=== PATIENT | male | born 1980 | race Caucasian/White ===

== ENCOUNTER 2019-08-07 16:28 | Emergency (ER) | payer OTHER, SELFPAY ==
[2019-08-07 16:39] VITALS: BP 130/66; PULSE 67; RESP 14; TEMP 36.3; O2SAT 97; BMI 32.5
--- NOTE | 2019-08-07 17:18 | CTR_ITS ---
PROCEDURE INFORMATION: Exam: CT Abdomen And Pelvis Without Contrast Exam date and time: 08/07/2019 5:22 PM Age: 38 years old Clinical indication: Abdominal pain; Acute; Additional info: Rigth flank/testicle pain sudden onset TECHNIQUE: Imaging protocol: Computed tomography of the abdomen and pelvis without contrast. Radiation optimization: All CT scans at this facility use at least one of these dose optimization techniques: automated exposure control; mA and/or kV adjustment per patient size (includes targeted exams where dose is matched to clinical indication); or iterative reconstruction. COMPARISON: No relevant prior studies available. RADIATION DOSE METRICS: Total DLP: 2229.38 mGy-cm FINDINGS: Liver: Normal. No mass. Gallbladder and bile ducts: Normal. No calcified stones. No ductal dilation. Pancreas: Normal. No ductal dilation. Spleen: Normal. No splenomegaly. Adrenals: Normal. No mass. Kidneys and ureters: 3 mm obstructing calculus in the right distal ureter (series 602, image 30). A 5 mm nonobstructing calculus at the lower pole of left kidney. 1 mm non-obstructing calculus at the lower pole of the right kidney. Mild right hydronephrosis and hydroureter. Stomach and bowel: Unremarkable. No obstruction. No mucosal thickening. Appendix: No evidence of appendicitis. Intraperitoneal space: Unremarkable. No free air. No significant fluid collection. Vasculature: Unremarkable. No abdominal aortic aneurysm. Lymph nodes: Unremarkable. No enlarged lymph nodes. Bladder: Unremarkable as visualized. Reproductive: Unremarkable as visualized. Bones/joints: Unremarkable. No acute fracture. Soft tissues: Unremarkable. CT/CT kidney stone 37110 IMPRESSION: Obstructing calculus measuring 3 mm in the distal right ureter with mild right hydronephrosis and hydroureter. Radiation Dose CTDIVOL = (mGy): DLP = 2229.38 (mGy-cm)
--- NOTE | 2019-08-07 17:20 | ED_ITS ---
HPI - Male Genitourinary General: Chief complaint: Urogenital-Male Stated complaint: back pain Time Seen by Provider: 08/07/19 17:09 History of Present Illness: HPI Narrative: Patient arrives here in pain with pain that started 2 hours ago in his right flank that radiates down to his right testicle has had nausea and vomiting since then denies history of kidney stones has a history of back pain does not take medications MD Complaint: testicle pain and other (Right flank pain) Onset (ago): hour(s) (2) Duration: constant and progressively worsening Location: right testicle and right flank Radiation: right testicle and right flank Severity: severe Severity scale (1-10): 7 Quality: aching and dull Relieving factors: none Exacerbating factors: none Associated symptoms: Reports nausea and vomiting Review of Systems Const: Denies: fever(s), chills or body aches Eyes: Denies: change in vision or blurry vision ENMT: Denies: throat pain or nasal congestion Card: Denies: chest pain or dyspnea on exertion Resp: Denies: dyspnea, productive cough or non-productive cough GI: Reports: nausea and vomiting : Reports: flank pain and testicular pain; Denies: difficulty urinating Musc: Denies: extremity pain Skin/Breast: Denies: rash Neuro: Denies: headache(s) Psych: Denies: anxiety or depression Carlos/Lymph: Denies: easy bruising PFSH ED PFSH: Social History Smoking and tobacco status: never smoked Physical Exam Narrative: EXAM NARRATIVE: Appears in discomfort Const: COMMON NORMALS: no acute distress, average body habitus and patient oriented x3 HENMT: COMMON NORMALS: normocephalic HEAD & SCALP: normal to inspection and normocephalic FACE & SINUS: normal facial exam Eye: COMMON NORMALS: conjunctivae normal GENERAL EYE: appearance normal, both eyes and all related structures CONJUNCTIVA: Yes conjunctivae normal Neck/C-Spine: COMMON NORMALS: no JVD Chest: COMMONS NORMALS: normal inspection of the chest Resp: COMMON NORMALS: normal respiratory effort and clear to auscultation bilaterally AUSCULTATION: clear to auscultation bilaterally Cardio: COMMON NORMALS: no JVD, regular rate and regular rhythm RATE: regular rate RHYTHM: regular rhythm GI: COMMON NORMALS: Normal to inspection, nondistended, normoactive bowel sounds present : COMMON NORMALS: Yes scrotum normal BLADDER/KIDNEY EXAM: Yes CVA tenderness on the right Back/Pelvis: GENERAL BACK: Yes CVA tenderness Extremity: COMMON NORMALS: normal to inspection and full ROM Neuro: COMMON NORMALS: patient oriented x3 Course Vital Signs: Vital signs: Vital Signs Temperature 97.3 F L 08/07/19 16:39 Pulse Rate 67 08/07/19 16:39 Respiratory Rate 14 08/07/19 16:39 Blood Pressure 130/66 08/07/19 16:39 Pulse Oximetry 97 08/07/19 16:39 Discharge Plan Discharge Condition: Good Coding Level of Care Code ED Marketing Information Coordinator for Neva Hernandez
[2019-08-07] MEDS: ketorolac 30 mg/mL INJ IVP (17:31)
[2019-08-07] MEDS: ondansetron 2 mg/ML SDV 2 mL 4 MG IVP (17:32)
[2019-08-07] MEDS: sodium chloride 0.9% 1,000 ML 999 ML IV (17:32)
[2019-08-07 17:58] LABS: Basophils % 0.3 %; Eosinophils # 0.2 10^3/uL (0.0-0.8); Eosinophils % 1.9 %; Hemoglobin 15.4 g/dL (11.7-16.6); Lymphocytes # 3.7 10^3/uL (0.8-4.8); Lymphocytes % 32.5 %; Mean Corpuscular HGB Conc 32.8 g/dL (30.0-36.0); Mean Corpuscular Hemoglobin 29.8 pg (28.0-34.0); Mean Corpuscular Volume 91.1 fL (80-94); Mean Platelet Volume 9.5 fL (7.4-10.4); Monocytes # 0.8 10^3/uL (0.2-0.9); Monocytes % 7.2 %; Neutrophils # 6.5 10^3/uL (1.8-7.7); Neutrophils % 57.8 %; Nucleated Red Blood Cells % 0 %; Platelet Count 267 10^3/cmm (130-400); Red Blood Count 5.16 10^6/uL (4.1-5.3); White Blood Count 11.2 10^3/uL (4.0-10.0)
[2019-08-07 18:06] LABS: Alanine Aminotransferase 21 U/L (0-41); Albumin Level 4.9 g/dL (3.5-5.2); Alkaline Phosphatase 70 IU/L (40-130); Anion Gap 16.9 (5-19); Aspartate Amino Transferase 18 U/L (0-40); Blood Urea Nitrogen 14 mg/dL (6-20); Calcium 9.9 mg/dL (8.5-10.5); Carbon Dioxide 24 mmol/L (22-29); Chloride 104 mmol/L (98-107); Globulin 2.3 g/dL (1.3-4.6); Glomerular Filtration Rate 68.1 mL/min (90-130); Glucose 147 mg/dL (65-115); Lipase 30 U/L (13-60); Osmolality Calculated 291 mOsm/kg (285-295); Potassium 3.9 mmol/L (3.5-5.1); Sodium 141 mmol/L (136-145); Total Bilirubin 0.2 mg/dL (0.15-1.2); Total Protein 7.2 g/dL (6.6-8.7)
[2019-08-07 18:43] VITALS: BP 126/61; PULSE 67; RESP 18; O2SAT 97
== END 2019-08-07 18:44 | disposition home or self-care (01) ==
PROVIDERS: Emergency Provider Nurse Practitioner Family; PCP Nurse Practitioner
DX: M54.9 Dorsalgia, unspecified (principal)
CPT/HCPCS: 12345; 36415; 74176; 80053; 83690; 85025; 96361; 96374; 96375; 99282; 99283; J1885; J2405; J7030

== ENCOUNTER 2021-06-30 06:00 | Outpatient (RCR) | payer OTHER, SELFPAY | END 2021-07-04 23:59 | disposition home or self-care (01) | LOC: SPT 06:00 | PROVIDERS: PCP Nurse Practitioner; Referring Provider Nurse Practitioner; Visit Provider Nurse Practitioner | DX: M25.512 Pain in left shoulder (principal) | CPT/HCPCS: 97110; 97161 ==

== ENCOUNTER 2021-07-05 | Outpatient (RCR) | payer OTHER, SELFPAY | END 2021-08-04 23:59 | disposition home or self-care (01) | LOC: SPT | PROVIDERS: PCP Nurse Practitioner; Referring Provider Nurse Practitioner; Visit Provider Nurse Practitioner | DX: M25.519 Pain in unspecified shoulder (principal) | CPT/HCPCS: 97110 ==

== ENCOUNTER → 2021-12-28 13:21 | Outpatient (BNVA) | payer OTHER, SELFPAY | PROVIDERS: PCP Nurse Practitioner; Visit Provider Specialist | DX: M25.561 Pain in right knee (principal); G89.29 Other chronic pain | CPT/HCPCS: 73560; 73565; 99204 ==

== ENCOUNTER 2022-11-11 20:00 | Outpatient (CLI) | payer OTHER, SELFPAY | END 2022-11-11 20:01 | disposition home or self-care (01) | LOC: SLEEP 11-12 04:13 | PROVIDERS: PCP Nurse Practitioner; Visit Provider Nurse Practitioner | DX: G47.33 Obstructive sleep apnea (adult) (pediatric) (principal) | CPT/HCPCS: 95811 ==

== ENCOUNTER 2024-08-29 09:10 | Emergency (ER) | payer OTHER, BC, SELFPAY ==
--- OUTSIDE RECORDS SUMMARY | 2024-06-06 05:20 | XMS_ITS ---
Author Organization [facility] Address [address] [place] [address] Care Team Providers Care Office Assistant Receptionist Name Role Phone Ji Cordon Unavailable [phone] Milena Lehman Unavailable [phone] REASON FOR VISIT 6-8 w f/u with CT abd/pelvis with and without contrast Problems Problem Type SNOMED Code ICD Code Onset Dates Problem Status W/U Status Risk Notes Problem Hematuria (34669618) Hematuria, unspecified (R31.9) Active confirmed Encounters Encounter Location Date Provider Diagnosis [facility] [address] [place] [address], [place] [phone] 06/06/2024 Milena Lehman Calculus of kidney N20.0 ; Hematuria, unspecified R31.9 ; Testicular hypofunction E29.1 and 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 IF YOU HAVE CHILLS, FEVER, FLANK PAIN, BLOOD IN URINE, NAUSEA, VOMITING, PLEASE SEEK EMERGENT CARE. 06/06/2024 Hematuria, unspecified (ICD-10 - R31.9) PLAN - PATIENT WILL CONTACT OFFICE OF THEY HAVE ANY GROSS OR CAMPBELL BLEEDING. 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 CORDON 06/06/2024 Other FOLLOW UP IN 6 MONTHS, HAS APPT WITH DR. CORDON Plan Of Treatment Treatment Notes Assessment Notes Calculus of kidney PLAN - PATIENT TO HAVE CT PER DR CORDON, CBC, CMP, UA AND FOLLOW UP WITH PROVIDER IN 6 MONTHS. IF YOU HAVE CHILLS, FEVER, FLANK PAIN, BLOOD IN URINE, NAUSEA, VOMITING, PLEASE SEEK EMERGENT CARE. Hematuria, unspecified PLAN - PATIENT WI LL CONTACT OFFICE OF THEY HAVE ANY GROSS OR CAMPBELL BLEEDING. Testicular hypofunction HAS APPT WITH DR CORDON SCHEDULED, HAS LABS ORDERED Neoplasm of renal pelvis CT UROGRAM, PAT IENT WILL NEED THIS PER DR. CORDON Other FOLLOW UP IN 6 MONTH S, HAS APPT WITH DR. CORDON Next Appt Details Provider Name:Ji Trevino Carl campos, 09/12/2024 11:10:00 AM, [address] [facility], [place] [address], [place], [address], Progress Notes * DEBBIE KOWALSKI RDOB: 2 (43 yo M)Acc No.[id number]:06/06/2024 Progress Notes Patient: Ton DEBBIE RO R Provider: J LUIS Ware :1980 A ge:43 Y S ex:Male Date:06/06/2024 Address:[address] [place] [address] Subjective: * Chief Complaints: * 1 . 6-8 w f/u with CT abd/pelvis with and without contrast. 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 Young's note he is to have his follow-up with him 6 months from his last appointment with CBC estradiol CMP and testosterone Will need CT 6 months from now. * Medical History: Objective: * Vitals: Assessment: * Assessment: 1. C alculus of kidney - N20.0 (Primary) 2 . H ematuria, unspecified - R31.9 3 . T esticular hypofunction - E29.1 4 . N eoplasm of renal pelvis - D49.519 Plan: * Treatment: 2. H ematuria, unspecified Notes: PLAN - PATIENT WILL CONTACT OFFICE OF THEY HAVE ANY GROSS OR CAMPBLEL BLEEDING. 3. T esticular hypofunction Notes: HAS APPT WITH DR CORDON SCHEDULED, HAS LABS ORDERED 4. N eoplasm of renal pelvis Notes: CT UROGRAM, PATIENT WILL NEED THIS PER DR. CORDON 5. O thers Notes: FOLLOW UP IN 6 MONTHS, HAS APPT WITH DR. 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 Young's note he is to have his follow-up with him 6 months from his last appointment with CBC estradiol CMP and testosterone Will need CT 6 months from now.
[2024-08-29 09:10] VITALS: BP 131/82; PULSE 94; RESP 16; TEMP 36.7; O2SAT 96; BMI 33.7
--- NOTE | 2024-08-29 09:15 | ECG_ITS ---
[facility] Date: 2024-08-29 Pat Name: Tod Rodriguez Department: Room: Gender: Male [employer]: : 1980 Requested By: Jacqueline Baez Order Number: [id number] Reading MD: Measurements Intervals [place] Rate: 84 P: 63 IL: 142 QRS: 83 QRSD: 96 T: 37 QT: 339 QTc: 403 Interpretive Statements SINUS RHYTHM No previous ECG available for comparison [email or web address]
--- OUTSIDE RECORDS SUMMARY | 2024-08-29 09:34 | XMS_ITS | Data Portability ---
Author Organization [facility] Address [address] [address] Assessment Encounter Date Assessment Date Assessment LastModified by Organization Details LastModified Time 12/21/2023 12/21/2023 Reviewed and discussed [facility] labs pt brought with him today. Document scribed by Santiago Murcia, Audio Narrator. I was present during interview and exam. I have reviewed and agree with above documentation . Dr. Steven Salomon. [email or web address] Not available 12/21/2023 17:13:59 Plan of Treatment Reminders Order Date Submit Date Provider Last Modified By Organization Details Last Modified Time Details Appointments None recorded. Lab None recorded. Referral None recorded. Procedures None recorded. Surgeries None recorded. Imaging None recorded. Medication Orders testosteron e cypionate 100 mg/mL intramuscul ar oil 2023 024 [facility] [place], [address] [place], [address], 4 15:06:22 Patient TargetsNo targets recorded. Patient InstructionsNo instructions recorded. Reason for Referral None Reported. Problems Name Problem SNOMED Code Status Onset Date Resolution Date Notes Provider Name and Address Organization Details Recorded Time [facility] 067218646 Completed 201812/21/2023 Benign Essential Tremor; 9 9:31AM by Eugene Gonzalez LPN, Office Visit; Promoted; acuity set as *; Santiago marley, [facility] 17:10:30 Tonsille ctomy Completed 200712/21/2023 Tonsillec gema, Uvulectom y; Date: 2007; 9 9:31AM by Eugene Gonzalez LPN, Office Visit; Promoted; acuity set as *; Santiago Murcia ayaka [facility] 4 17:10:20 Alpha-ga l syndrome Active 2023 [facility] 16:33:54 Obstruct dhiraj sleep apnea syndrome 24247115 Active 2023 [facility] 17:09:43 Testoste patel level below referenc e range 584981851 Active [address] [facility] 17:19:36 Problem Notes None recorded. Procedures Surgical History Date Name Laterality Status Provider Name and Address Organization Details Recorded Time manipulation of displaced nasal septum completed [facility] 12/21/2023 16:36:14 Remove tonsils and adenoids completed [facility] 12/21/2023 16:36:46 ultrasonic fragmentation of urinary stone through percutaneous nephrostomy completed [facility] 12/21/2023 16:37:00 Imaging Results None recorded. Procedure Notes None recorded. Medical Equipment None Reported. Allergies No known drug allergies Medications Name Sig Start Date Stop Date Status Note LastModified by Organization Details LastModified Time desonide 0.05 % topical cream 12/20 completed Not Available Not Available Not Available citalopram 40 mg tablet 12/20 completed Not Available Not Available Not Available azithromyci n 250 mg tablet TAKE 2 TABLETS BY MOUTH TODAY, THEN TAKE 1 TABLET DAILY ON DAYS 2-5 12/20 completed Not Available Not Available Not Available testosteron e cypionate 100 mg/mL intramuscul ar oil Inject by intramusc ular route for 90 days. active Not Available Not Available No t Available clobetasol 0.05 % topical cream 12/20 completed Not Available Not Available Not Available omeprazole 40 mg capsule,del ayed release 12/20 completed Not Available Not Available Not Available propranolol 10 mg tablet 12/20 completed Not Available Not Available Not Available citalopram 20 mg tablet TAKE 1 TABLET BY MOUTH EVERY DAY 12/20 completed Not Available Not Available Not Available oseltamivir 75 mg capsule take 1 capsule BY MOUTH TWICE DAILY 12/20 completed Not Available Not Available Not Available hydrochloro thiazide 25 mg tablet 12/20 completed Not Available Not Available Not Available epinephrine 0.3 mg/0.3 mL injection, auto-inject or active Not Available Not Available Not Available testosteron e cypionate 200 mg/mL intramuscul ar oil inject 0.5ml (100mg) INTRAMUSC ULARLY every TWO weeks active Not Available Not Available No t Available fluocinonid e 0.05 % topical solution 12/20 completed Not Available Not Available Not Available methylpredn isolone 4 mg tablets in a dose pack Take as directed on package for 6 days 12/20 completed Not Available Not Available Not Available Vitals Date Recorded Body weight Body mass index (BMI) Body height Oxygen saturation Oxygen saturation in Arterial blood by Pulse oximetry Heart rate Respiratory rate Provider Name and Address Organization Details Last Updated DateTime 4 190429. 19 g 34.9 kg/m2 180.34 cm 97 % 97 % 108 /min 20 /min Reny Figueroa [facility] 16:32:22 Social History Question Answer Notes LastModified by Organizat ion Details LastModified Time Tobacco Smoking Status Former Smoker Reny marley [facility] 12/21/2023 16:35:53 What Is Your Level Of Caffeine Consumption? Moderate Information not available 12/21/2023 When Did You Quit Smoking? 1-5yearssincel astcigarette Information not available 12/21/2023 What Was The Date Of Your Most Recent Tobacco Screening? 12/21/2023 Information not available 12/21/2023 Sex: Unknown Functional Status Question Answer Note LastModified by Organizat ion Details LastModified Time Do you use any illicit or recreational drugs? No [email or web address] Information not available 12/21/2023 Do you or have you ever used any other forms of tobacco or nicotine? No [email or web address] Information not available 12/21/2023 What is your level of alcohol consumption? Occasional [email or web address] Information not available 12/21/2023 Do you or have you ever used any nicotine-free cigarettes, vape, or chewing tobacco? No [email or web address] Information not available 12/21/2023 Mental Status None recorded. Family History Relationship Description Onset Age of this Age Resolved Age Notes LastModified by Organization Details LastModified Time Father Essential hypertension Not available 16:34:34 Paternal Grandmother Neoplasm of brain [email or web address] Not available 2023 16:34:52 Notes:Father Prediabetic. Medical History No medical history recorded. Immunizations Vaccine Type Date Status Note Provider Nam e and Address Organization Details Recorded Time Tdap 3 completed Not Available [facility] 10/02/20[facility] 02:50:43 Influenza, split virus, trivalent, preservative 5 completed Not Available [facility] 10/02/2022 02:50:44 COVID-19, mRNA, LNP-S, PF, 100 mcg/0.5mL dose or 50 mcg/0.25mL dose [address] [facility] 12/21/2023 16:32:34 Influenza, split virus, trivalent, preservative [address] [facility] 12/21/2023 16:32:34 Past Encounters Encounter ID Performer Location Encounter Start Date Encounter Closed Date Diagnosis/Indication Diagnosis SNOMED-CT Code Diagnosis ICD10 Code Diagnosis Note [id number] Steven Salomon DO [facility] ([facility]) [address] [place] [phone] 12/21/2023 16:25:17 12/22/2023 08:53:01 Obstructive sleep apnea syndrome 02272348 G47.33 Dx in 2021, using CPAP, tolerating well. Testostero ne level below reference range 263636629 R89.1 Discussed Testostero ne, options of injection or gel. Pt prefers to try injection. Recheck Testostero ne in 3 months, prior to getting injection. Counseled on diagnosis, treatment options including medication s and possible side effects. F/u 3 months, lab prior. Health Concerns Section Related Observation LastModified by Organization Detai ls LastModified Time None Recorded Concern Status LastModified by Organization Details LastModified Time None Recorded Advance Directives Directive None Recorded Payers Insurance Date Sequence Insurance Name Policy Number Policy Aviles Covered Member ID Aviles Member ID Guarantor Name 02/18/2024 1 [place] [id number] Tod Rodriguez [id number] Tod Rodriguez Notes Date Note Type Note Provider Name and Address Organization Details Recorded Time 12/21/2023 text/html Annual WellnessReported bypatient.Diet and Nutrition:healthy diet Fracture Risk:no history of fractures; no recent explained fracture; no sudden unexplained fractures; no previous musculoskeletal injuries Physical Activity:exercises on a regular basis; recent increase in physical activity; good physical condition Additional Lifestyle Factors:no tobacco use; no alcohol intake Depression Risk:never feels sad, empty, or tearful; no thoughts of suicide;loss of interest in activities;significant changes in weight;sleep disturbances or insomnia;agitated;loss of energy;feelings of worthlessness or guilt;history of mood disorders;history of depression Hearing:no loss of hearing Vision:no vision problems; wears corrective lenses Pt presents to establish care, previous pcp was [facility]. Generally healthy. No significant Pmhx other than RAFAEL and Alpha Gal Syndrome.No recent ER visits or hospitalizations. Mood stable, denies any severe depression or anxiety. Fhx: Father Prediabetic. He c/o fatigue. Recent testosterone levels were 294 on 12/01/23, 280 on 12/08/23, and 331 on 04/29/23.[facility] will not address his Testosterone. He feels like he is losing muscle mass, not losing weight. He has no motivation. He is easily worn out.If he sits down he falls asleep. Falls asleep easily in the car. He has started yoga for exercise, because his knees couldn't tolerate heavy exercise. Using treadmill 30 mins per day. He has cut out all soda, limiting sugars to 1-2 times weekly. Avoids energy drinks.He tried a carnivore diet, didn't tolerate.He is limiting his food to mostly meat and veggies, some bread. He eats mostly chicken and fish, limits his dupont to 2 pieces per day. 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 At home he sleeps around 7 hours per night.He no longer snores since starting CPAP at night. He brings lab results from [facility] drawn 12/13/23:TPO wnl.TSH 1.01.T4 borderline low.Vit D 29.B12 391.Total Chol 150, LDL 93.8, Tri 131, HDL 30.Glucose 98.A1c 5.5.AST 16, ALT 19.LH 2. Steven Salomon, DO [address] [place] [address], [phone], [facility], [place] 12/21/2023 17:30:05
--- OUTSIDE RECORDS SUMMARY | 2024-08-29 09:34 | XMS_ITS | Patient Health Record ---
Author Organization [facility] Address [address] [place] [address] Care Team Providers Care Bark Grinder Name Role Phone Ji Leong Unavailable [phone] Milena Lehman Unavailable Allergies No Known Allergies Results Component Value Reference Range Notes UA Without Micro-[place], [place] - [id number] Reviewed date:03/29/2024 10:20:01 AM Interpretation: Performing Lab: Notes/Report: Glucose - Bili 1+ Ketones +- Sp Hortense 1.020 Blood 3+ pH 6.0 Protein 3+ Urobili +- Nitrites + Leukocytes 2+ Culture Urine [id number] Reviewed date:04/02/2024 09:23:27 AM Interpretation: Performing Lab: Notes/Report: Culture Urine DEBBIE Maloney Culture Urine t: Culture Urine Culture Urine Access [id number] Culture Urine n: Culture Urine Microbiology Culture Urine PROCEDURE: Culture Urine [O1] Culture Urine SOURCE: Urine BODY SITE: Culture Urine COLLECTED DATE/TIME: 03/29/2024 10:15 FONDANT PUFF MAKER RECEIVED DATE/TIME: 03/29/2024 15:31 [employer]ONDANT [employer] Culture Urine START DATE/TIME: 03/29/2024 15:31 FONDANT [employer] FREE TEXT SOURCE: Culture Urine FINAL REPORT Culture Urine Final Report [] Culture Urine Verified Date/Time: 03/31/2024 06:20 [employer]ONDANT [employer] Culture Urine No growth at 48 hours Culture Urine Order Comments Culture Urine O1: Culture Urine (Culture Urine [id number]) Culture Urine Diagnosis Description: Hematuria, unspecified [place] - [id number] Reviewed date:04/18/2024 11:05:03 AM Interpretation: Performing Lab: Notes/Report: Glucose - Bili - Ketones - Sp Hortense 1.020 Blood 3+ pH 6.5 Protein 3+ Urobili - Nitrites - Leukocytes 1+ UA Without [place], [place] - [id number] Reviewed date:07/16/2024 02:56:52 PM Interpretation: Performing Lab: Notes/Report: Glucose 0 Bili 0 Ketones 0 Sp Hortense 1.015 Blood 0 pH 7.0 Protein 0 Urobili 0 Nitrites [address] Abdomen, Pelvis w/ + w/o Contrast-[id number] Reviewed date:06/02/2024 08:21:57 PM Interpretation: Performing Lab: Notes/Report: [id number]=[email or web address] Abdomen AP-[id number] Reviewed date:01/31/2024 09:17:11 AM Interpretation: Performing Lab: Notes/Report: See Below For Report Abdomen AP Diagnosis Description: Calculus of kidney Read See Below For Report Culture Urine [id number] Reviewed date:03/24/2024 02:57:44 PM Interpretation: Performing Lab: Notes/Report: Culture Urine Enedina CHÁVEZDEBBIE MCGEE Culture Urine t: Culture Urine Culture Urine Accessio [id number] Culture Urine n: Culture Urine Microbiology Culture Urine PROCEDURE: Culture Urine [] Culture Urine SOURCE: U CC BODY SITE: Culture Urine COLLECTED DATE/TIME: 03/22/2024 08:10 FONDANT [employer] MAKER RECEIVED DATE/TIME: 03/22/2024 11:37 FONDANT [employer]KER Culture Urine START DATE/TIME: 03/22/2024 11:37 FONDANT [employer] FREE TEXT SOURCE: Culture Urine FINAL REPORT Culture Urine Final Report [] Culture Urine Verified Date/Time: 03/24/2024 08:22 FONDANT PU[employer] MAKER Culture Urine <10,000 cfu/ml Mixed Superficial Jil CBC w\ Auto Diff [id number] Reviewed date:03/24/2024 02:55:00 PM Interpretation: Performing Lab: Notes/Report: WBC 8.2 4.5-11.0 X10'3 RBC 5.82 4.50-5.90 X10'6 Hgb 16.6 13.5-17.5 G/DL Hct 51.6 41.0-53.0 % MCV 88.7 80.0-100.0 FL MCH 28.5 27.0-31.0 PG MCHC 32.2 31.0-37.0 G/DL Platelet 308 150-400 X10'3 RDW-SD 41.5 35.0-49.0 FL RDW-CV 12.7 12.2-15.6 % MPV 9.3 9.2-12.0 FL Neutro Auto% 49.1 40.0-70.0 % Lymph Auto% 38.6 22.0-44.0 % Brooke Auto% 9.4 3.0-7.0 % Eos Auto% 2.3 2.0-4.0 % Baso Auto% 0.2 0.0-1.0 % Imm Gran% .4 .0-.4 % Neutro Abs 4.04 .80-7.70 Absolute Neutrophil Count 4040 Lymph Abs 3.17 .10-4.10 Brooke Abs .77 .20-1.00 Eos Abs .19 .00-.40 Baso Abs .02 .00-.20 Imm Gran Abs .03 .00-.10 NRBC# .00 .00-.20 NRBC% .00 .00-.20 /100 intact WBC's Comprehensive Metabolic Pane l (CMP) [id number] Reviewed date:03/24/2024 02:55:08 PM Interpretation: Performing Lab: Notes/Report: Glucose Serum 95 71-110 MG/DL Testing perfor med at [facility], [address] [place] [address] [place] [address]. CLIA ID#: [id number] BUN 16 7-21 MG/DL Creat 1.03 .57-1.17 MG/DL X-iuiydm-f-benzoquinon e imine (NAPQI) is a metabolite of acetaminophen, NAPQI concentrations of apparoximately 10 mg/L correlation to toxic levels of acetaminophen demonstrates a greater than or equil to 10% change in results. NAPQI concentrations greater than this may lead to falsely depressed results for patient samples. Use of this assay is not recommended for patients undergoing treatment with phenindione, due to the potential for falsely depressed results. GFR 92.3 Calculation per formed from GFR calculator provided by the National [employer]. Glomerular Filtration rate(GRF) is the best overall index of kidney function. Normal GFR varies according to age,sex, body size, and declines with age. The National Kidney Foundation recommends using the CKD-EPI Creatinine Equation(2020) to estimate GFR. BUN/Creat Ratio 15.5 12.0-20.0 % Total Protein 7.1 5.8-8.0 G/DL Albumin 4.7 3.2-4.8 G/DL Globulin 2.4 2.3-3.5 G/DL Alb/Glob 2.0 0.8-2.2 Calcium 9.6 8.7-10.4 MG/DL Sodium 139 136-145 MMOL/L Potassium 4.4 3.5-5.1 MMOL/L Chloride 105 98-107 MMOL/L CO2 27.0 20.0-31.0 MMOL/L Anion Gap 11 5-15 Alk Phos 60 46-116 Bili Total .6 .3-1.2 MG/DL Use of this ass ay is not recommended for patients undergoing treatment with eltrombopag due to the potential for falsely elevated results. AST/SGOT 18 15-37 UNIT/L ALT/SGPT 21 12-78 UNIT/L Osmo Serum,Calculated 289 280-300 MOSM/KG Stone Analysis ( Calculi) 82 365 Reviewed date:04/13/2024 08:19:03 PM Interpretation: Performing Lab: Notes/Report: Calculi Mass 167 Calculi Description See Note Specimen consists of numerous brown and joe calculi fragments. The total weight is 167 mg. Calculi Composition See Note Calculi composed primarily of: 90% calcium oxalate monohydrate, and 10% calcium phosphate (hydroxy- and carbonate- apatite). INTERPRETIVE INFORMATION: Calculi (Stone) analysis Calculi are the products of physiological processes that yield crystalline compounds in a matrix of biological compounds and blood. Matrix components are not reported. The clinically significant crystalline components identified in calculi specimens are reported. Gross description may not be consistent with composition determined by FTIR analysis. Performed By: [facility] [address] [place] [id number] Scientific Associate: Nirmal Rowe MD, PhD CLIA Number: [id number] Retrograde Urography Reviewed date:04/05/2024 06:03:50 PM Interpretation: Performing Lab: Notes/Report: [id number]=iSite Retrograde Urography Reviewed date:04/05/2024 06:03:50 PM Interpretation: Performing Lab: Notes/Report: See Below For Report Retrograde Urography Read See Below For Report CT Abdomen, Pelvis w/ + w/o Contrast-[id number] Reviewed date:06/02/2024 08:49:27 PM Interpretation: Performing Lab: Notes/Report: See Below For Report CT Abdomen, Pelvis w/ + w/o Contrast Read See Below For Report Testosterone Total 99997 Reviewed date:03/24/2024 02:56:09 PM Interpretation: Performing Lab: Notes/Report: Testoster Tot 603.29 123.00-814.00 NG/DL Performed on the [employer]ens [employer] IM Analyzer Prolactin 61652 Reviewed date:03/24/2024 02:56:05 PM Interpretation: Performing Lab: Notes/Report: Prolactin 10.3 Expected Values Females Non: 2.8?29.2 ng/mL : 9.7? > 200 ng/mL Postmenopausal: 1.8?20.3 ng/mL Males 2.1?17.7 ng/mL Luteinizing Hormone 52898 Reviewed date:03/24/2024 02:55:28 PM Interpretation: Performing Lab: Notes/Report: Luteinizing Hrm <.07 Reference Ranges: Normal menstruating. Follicular Phase 1.9-12.5. Midcycle Peak 8.7-76.3. Luteal Phase 0.5-16.9. <0.1-1.5. Postmenopausal 15.9-54.0. Contraceptives 0.7-5.6. Males 20-70 Years 1.5-9.3. >70 Years 3.1-34.6. Performed on the Siemens [employer] Solution IM Estradiol Level 98896 Reviewed date:03/24/2024 02:55:21 PM Interpretation: Performing Lab: Notes/Report: Estradiol 71 Males < 0-52 Follicular Phase 11-165 Midcycle 146-526 Luteal Phase 33-133 Postmenopausal Female < 0-37 Test performed with Siemens Estradiol reagent assay. Siemens has confirmed the drug fulvestrant (Faslodex) may cause falsely elevated estradiol results when performed with this assay method. Fulvestrant (Faslodex) is an estrogen receptor antagonist which is used in the treatment of stage IV recurrent breast cancer in post-menopausal women with estrogen receptor positive breast cancer. Fulvestrant is used when other anti-estrogen drugs have failed. Fulvestrant has a similar chemical structure to estradiol and may cross-react with antibodies used in immunoassays. Abdomen AP-[id number] Reviewed date:01/30/2024 03:03:14 PM Interpretation: Performing Lab: Notes/Report: [email or web address]=[id number]=iSite Testosterone Total 07593 Reviewed date:02/05/2024 08:32:42 AM Interpretation: Performing Lab: Notes/Report: Diagnosis Description: Hypercalciuria Testoster Tot 747.15 123.00-814.00 NG/DL Performed on the [employer] IM Analyzer Basic Metabolic Panel (BMP) 82307 Reviewed date:02/05/2024 08:32:32 AM Interpretation: Performing Lab: Notes/Report: Diagnosis Description: Hypercalciuria Sodium 140 136-145 MMOL/L Potassium 3.7 3.5-5.1 MMOL/L Chloride 104 98-107 MMOL/L CO2 26.8 20.0-31.0 MMOL/L Glucose Serum 111 71-110 MG/DL Testing perfor med at [address] [place] [address]. CLIA ID#: [id number] BUN 11 7-21 MG/DL Creat .98 .57-1.17 MG/DL Z-emfqlu-u-benzoquinon e imine (NAPQI) is a metabolite of acetaminophen, NAPQI concentrations of apparoximately 10 mg/L correlation to toxic levels of acetaminophen demonstrates a greater than or equil to 10% change in results. NAPQI concentrations greater than this may lead to falsely depressed results for patient samples. Use of this assay is not recommended for patients undergoing treatment with phenindione, due to the potential for falsely depressed results. GFR 97.9 Calculation per formed from GFR calculator provided by the National Kidney Foundation. Glomerular Filtration rate(GRF) is the best overall index of kidney function. Normal GFR varies according to age,sex, body size, and declines with age. The National Kidney Foundation recommends using the CKD-EPI Creatinine Equation(2020) to estimate GFR. Anion Gap 13 5-15 BUN/Creat Ratio 11.2 12.0-20.0 % Calcium 9.8 8.7-10.4 MG/DL Osmo Serum,Calculated 290 280-300 MOSM/KG Reason For Referral Reason Kidney Stones Referring Provider First Name Wilson Asael ff Referring Provider Last Name [place] Referring Provider [facility] Referred Organization [facility] Referred Provider Ji Leong Referred Address [address],[place],[address],[place] Referred Provider Specialty Urology Referral Priority Routine Reason Kidney stone Referring Provider First Name Regan Asael ff Referring Provider Last Name [place] Referring Provider [facility] Referred Organization [facility] Referred Provider Ji Leong Referred Address [address],[place],[address],[place] Referred Provider Specialty Urology Referral Priority Routine 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) Referring Provider First Name Regan Asael ff Referring Provider Last Name [place] Referring Provider [facility] Referred Organization [facility] Referred Provider Ji Leong Referred Address [address],[place],[address],[place] Referred Provider Specialty Urology Referral Priority Routine Medications Medication SIG (Take, Route, Frequency, Duration) Notes Start Date End Date Status Testosterone Cypionate 200 MG/ML 0.5mL Intramuscular weekly for 30 days 01/31/2024 Active Problems Problem Type SNOMED Code ICD Code Onset Dates Problem Status W/U Status Risk Notes Problem Testicular hypofunction (769841878) Testicular hypofunction (E29.1) Active confirmed Problem Calculus of kidney (26250647) Calculus of kidney (N20.0) Active confirmed Problem Disorder of kidney and/or ureter (845901502) Disorder of kidney and ureter, unspecified (N28.9) Active confirmed Problem Hematuria (56584251) Hematuria, unspecified (R31.9) Active confirmed Problem Nephrolithiasis (76639238) Nephrolithiasis (N20.0) Active confirmed Vital Signs Heart Rate 99 /min 07/16/2024 Temperature 99.1 degrees Fahrenheit 07/16/2024 Blood pressure diastolic 91 mm Hg 07/16/2024 Height-cm 182.88 cm 07/16/2024 Weight-kg 113.67 kg 07/16/2024 Height 72.00 in 07/16/2024 Blood pressure systolic 142 mm Hg 07/16/2024 Weight 250.6 lbs 07/16/2024 BMI 33.98 kg/m2 07/16/2024 Procedures Procedure Date Ordered Date Performed Result Body Sit e PVR (Post Void Residual) 03/29/2024 03/29/2024 N/A Encounters Encounter Location Date Provider Diagnosis [facility] [address] [place] [address] 01/31/2024 Ji Leong Testicular hypofunct ion E29.1 and Nephrolithiasis N20.0 [facility] [address] [place] [address] [place] [address] 03/29/2024 Ji Leong Hematuria, unspecifi ed R31.9 ; Low testosterone R79.89 ; Nephrolithiasis N20.0 and Feeling of incomplete bladder emptying R39.14 [facility] [address] [place] [address] [place] [address] 04/18/2024 Ji Leong Calculus of kidney N20.0 ; 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 and Testicular hypofunction E29.1 [facility] [address] [place] [address] [place] [address] 07/16/2024 Milena Lehman Calculus of kidney N20.0 and Disorder of kidney and ureter, unspecified N28.9 [facility] [address] [place] [address] 12/08/2023 Ji Leong [facility] [address] [place] [address] 01/30/2024 Ji Leong Hypercalciuria R82.9 94 and Calculus of kidney N20.0 [facility] [address] [place] [address] 01/31/2024 Ji Leong [facility] [address] [place] [address] 01/31/2024 Ji Leong [facility] [address] [place] [address] 01/31/2024 Ji Leong Testicular hypofunct ion E29.1 [facility] [address] [place] [address] [address] [place] [address] 01/31/2024 Ji Leong Testicular hypofunct ion E29.1 [facility] [address] [place] [address] [address] [place] [address] 01/31/2024 Ji Mayssay [facility] [address] [place] [address] 03/05/2024 Ji [facility] [address] [place] [address] 03/25/2024 Ji Leong Nephrolithiasis N20. 0 [facility] [address] [place] [address] 03/29/2024 Ji Neris [facility] [address] [place] [address] [address] [place] [address] 03/29/2024 Ji Leong Hematuria, unspecifi ed R31.9 [facility] [address] [place] [address] [address] [place] [address] 03/29/2024 Ji [facility] [address] [place] [address] [address] [place] [address] 04/18/2024 Ji Leong Calculus of kidney N20.0 [facility] [address] [place] [address] [address] [place] [address] 04/18/2024 Ji Leong Calculus of kidney N20.0 [facility] [address] [place] [address] [address] [place] [address] 05/30/2024 Ji Mayssay [facility] [address] [place] [address] [address] [place] [address] 06/05/2024 Ji Mayssay [facility] [address] [place] [address] [address] [place] [address] 07/17/2024 Ji [facility] [address] [place] [address] [address] [place] [address] 07/23/2024 Ji Leong Testicular hypofunct ion E29.1 [facility] [address] [place] [address] 03/27/2024 Ji Leong Assessments Encounter Date Diagnosis (ICD Code) Assessment Notes Treatment Notes Treatment Clinical Notes Section Notes 01/31/2024 Testicular hypofunction (ICD-10 - E29.1) 01/31/2024 Nephrolithiasis (ICD-10 - N20.0) 01/31/2024 Testicular hypofunction (ICD-10 - E29.1) 01/31/2024 Testicular hypofunction (ICD-10 - E29.1) 03/25/2024 Nephrolithiasis (ICD-10 - N20.0) 03/29/2024 Hematuria, unspecified (ICD-10 - R31.9) 01/30/2024 Hypercalciuria (ICD-10 - R82.994) 03/29/2024 Low testosterone (ICD-10 - R79.89) 03/29/2024 Hematuria, unspecified (ICD-10 - R31.9) 04/18/2024 Calculus of kidney (ICD-10 - N20.0) 04/18/2024 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 KUB IS ORDERED BY DR LEONG FOR HIS [facility] APPT? 07/16/2024 Disorder of kidney and ureter, unspecified (ICD-10 - N28.9) DR. LEONG ORDERED CT FOR PATIENT IN , ALSO ORDERED LABS FOR HIS NEXT VISIT WITH HIM IN SEPTEMBER APPEARS PATIENT HAS KUB DUE AT [facility]'S APPT WELL 07/23/2024 Testicular hypofunction (ICD-10 - E29.1) 04/18/2024 Testicular hypofunction (ICD-10 - E29.1) 01/30/2024 Calculus of kidney (ICD-10 - N20.0) 03/29/2024 Nephrolithiasis (ICD-10 - N20.0) 03/29/2024 Feeling of incomplete bladder emptying (ICD-10 - R39.14) 06/06/2024 Other FOLLOW UP IN 6 MONTHS, HAS APPT WITH DR. LEONG 01/31/2024 Other Next avialable with me with cbc, cmp, testosterone, LH, prolactin, estradiol. change testosterone to 100mg once a week. Schedule cysto and left stone manipulation in March. The risks of infection, bleeding, damaging the urinary tract was discussed. 03/29/2024 Other Continue testosterone 100mg IM WEEKLY see nurse pracxtitieron in 6 months with cbc, estradiol, cmp, testosterone with kub in 6 months left stone manipulation next week as scheduled culture urine. Mild incomplete emptying of bladder is likely secondary to Solifenacin. Will monitor. Continue Solifenacin as needed for stent discomfort. 04/18/2024 Other Continue testosterone 100 mg weekly. Keep his in 6 months with CBC estradiol CMP and testosterone. Follow-up with nurse practitioner [address] abd/pelvis with and without IV contrast. Then recheck CT around 6 months after this one. Discuss low oxalate diet at next visit. 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 I discussed this with a colleague at [facility] who felt this would be the best course. 07/16/2024 Other PATIENT TO FOLLOW UP WITH DR LEONG IN SEPTEMBER WITH KUB AND TESTOSTERONE LABS PATIENT TO FOLLOW UP IN , OR AFTER HIS NEXT CT WITH EITHER MYSELF OR DR LEONG. 03/25/2024 Other Next available with me with cbc, cmp, testosterone, LH, prolactin, estradiol. change testosterone to 100mg once a week. Schedule cysto and left stone manipulation in March. The risks of infection, bleeding, damaging the urinary tract was discussed. Plan Of Treatment Future Test Test Name Order Date CBC w\ Auto Diff [id number] 02/05/2024 Comprehensive Metabolic Panel (CMP) 8005 3 02/05/2024 Estradiol Level 57582 02/05/2024 Luteinizing Hormone 17929 02/05/2024 Prolactin 49340 02/05/2024 Testosterone Total 68155 02/05/2024 CBC w\ Auto Diff 97922 08/05/2024 Comprehensive Metabolic Panel (CMP) 8005 3 08/05/2024 Estradiol Level 13121 08/05/2024 Testosterone Total 28063 08/05/2024 Abdomen AP-86141 08/05/2024 Next Appt Details Provider Name:Ji campos, 09/12/2024 11:10:00 AM, [address] [facility] [address], [place], [address], Insurance Providers Payer Name Payer Address Payer Phone Subscriber Number Group Number Insured Name Patient Relationship to Insured Coverage Start Date Coverage End Date [employer] [address] [place] [phone] [id number] DEBBIE KOWALSKI Self - patient is the insured Medical (General) History Medical History History ICD Code Kidney Stones Surgical History Surgery Date(Month/Year) hemorrhoidectomy Vasectomy Throat surgery Kidney stone surgery Ureteral stent placement
--- NOTE | 2024-08-29 09:52 | ED_ITS ---
HPI - Syncope 2 General: Chief Complaint: Syncope Stated Complaint: passing out, high bp Time Seen by Provider: 08/29/24 09:45 History of Present Illness: 43-year-old man with no known medical hi story presents to the emergency room with multiple syncopal episodes. He says he will feel lightheaded and has about 10 seconds to get to the ground for passes out. He says afterward he feels dazed. He says his blood pressure has been more elevated. Today after an episode it was 150s over 90s. 131/80 on presentation here. No chest pain. No cough. No fever. No abdominal pain. No nausea or vomiting. No altered mental status. No lower extremity swelling. He says he does take testosterone supplements. He says he had similar episodes [place] and had testing done and was admitted to the hospital for 3 days and nothing was discovered. Related Data Home Medications ?Medication ?Instructions ?Recorded ?Confirmed desonide 0.05 % topical cream 1 applic topical BID PRN Rash 08/29/24 08/29/24 fluticasone propionate 50 1 spray intranasal DAILY 08/29/24 mcg/actuation nasal spray,suspension montelukast 10 mg tablet 10 mg PO QPM 08/29/24 omeprazole 40 mg capsule,delayed 40 mg PO QAM 08/29/24 08/29/24 release propranolol 10 mg tablet 10 mg PO BID 08/29/24 testosterone cypionate 200 mg/mL 100 mg IM Q7D 5 08/29/24 intramuscular oil Allergies Allergy/AdvReac Type Severity Reaction Status Date / Time No Known Allergies Allergy Unverified 08/29/24 09:17 Review of Systems 2 Narrative: Constitutional symptoms: Negative except as documented in HPI. Skin symptoms: Negative except as documented in HPI. Eye symptoms: Negative except as documented in HPI. ENMT symptoms: Negative except as documented in HPI. Respiratory symptoms: Negative except as documented in HPI. Cardiovascular symptoms: Negative except as documented in HPI. Gastrointestinal symptoms: Negative except as documented in HPI. Genitourinary symptoms: Negative except as documented in HPI. Musculoskeletal symptoms: Negative except as documented in HPI. Neurologic symptoms: Negative except as documented in HPI. Psychiatric symptoms: Negative except as documented in HPI. Endocrine symptoms: Negative except as documented in HPI. [facility] ED 2 PFSH: Social History Smoking and tobacco/nicotine status: former use of tobacco/nicotine Second hand smoke exposure: No Alcohol intake: current Alcohol intake frequency: few times a week Substance/Drug Use: never Adopted: No Caregiver/support person: Yes Lives independently: No Household members: spouse Housing: House Marital status: Number of children: 2 Highest education level completed: Some College, No Degree service: Yes status: Discharged branch: [employer] Current occupational exposures/hazards: No Pets and animals: Yes Sexually active: Yes Do you think of yourself as: Straight/Heterosexual Current gender identity: Male Special chapis needs: No Agree to transfusion: Yes Physical Exam 2 Narrative: EXAM NARRATIVE: General: Alert, no acute distress. Skin: Warm, dry. Head: Normocephalic, atraumatic. Neck: Supple, trachea midline. Eye: Extraocular movements are intact. Ears, nose, mouth and throat: mucosa moist. Cardiovascular: Regular, Normal peripheral perfusion. Respiratory: Lungs are clear to auscultation, respirations are non-labored, breath sounds are equal, Symmetrical chest wall expansion. Gastrointestinal: Soft, Nontender, Non distended Musculoskeletal: Normal ROM, no deformity. Neurological: Alert and oriented, No focal neurological deficit observed. Psychiatric: Cooperative, appropriate mood & affect. Course 2 Vital Signs: Vital signs: Vital Signs Temperature 98.0 F 08/29/24 09:10 Pulse Rate 87 08/29/24 12:36 Respiratory Rate 16 08/29/24 09:10 Blood Pressure 127/62 08/29/24 12:36 Pulse Oximetry 98 08/29/24 12:36 Oxygen Delivery Me thod Room Air 08/29/24 09:59 MDM - Syncope Medical Decision Making Medical decision making: Differential diagnosis including but not limited to and based on the above HPI, review of systems and physical exam in this patient with syncope: Vasovagal, orthostatics hypotension, cardiac dysrhythmia, myocardial infarction, infection and hypotension, seizure, Orders placed to evaluate differential diagnosis based on the above differential, HPI and physical exam EKG: Time 9:15 AM. Rate 84. Normal sinus rhythm, No ST-T changes, no ectopy, normal [place] & QRS intervals, This was reviewed and interpreted by myself the ER physician at 9:[address] head: No acute intracranial process. no intracranial hemorrhage, no evidence of infarct. no evidence of acute fracture.This was reviewed and interpreted by myself the ER physician. Chest x-ray: No acute process. No infiltrate. No pneumothorax. This was reviewed and interpreted by myself the emergency room physician. I also reviewed the radiology report. Lab Review: Laboratory results were reviewed and interpreted by myself the emergency room physician. No leukocytosis. No anemia. No renal failure. Liver enzymes are normal. Cardiac markers are negative. D-dimer is negative so no pulmonary embolism. I reviewed the patient's medical record. Reexamination: Patient had an episode while here in the emergency room. There was no corresponding cardiac monitoring changes while this occurred. actually videoed this. I observe the video. He is eyes seemed to roll back and he did appear to pass out briefly and then startled and his eyes open very wide. Afterwards he said he felt a little bit confused. He is now back to normal. Consultation: I spoke with Dr. Sanchez who is on-call for neurology. She has kindly agreed to evaluate the patient in the emergency room. She is evaluated the patient. She recommends outpatient MRI, sleep deprived EEG, 30-day heart monitor, records from [facility] and a 2 to 4-week follow-up with her. Assessment and plan: Syncope ?Extensive workup. Negative head CT. No cardiac dysrhythmias. No PE. No correlation with episodes to cardiac rhythm or hypotension. Continue work as an outpatient and follow-up with neurology - Discharged home - Discussed plan with patient. Answered any questions. - Evaluation and treatment of this problem were appropriate in the emergency setting. Lab Data 08/29/24 09:54 08/29/24 09:54 Radiology Impressions Chest X-Ray 08/29/24 10:03 IMPRESSION: 1. Negative chest. Head CT 08/29/24 11:33 IMPRESSION: 1. No evidence of acute intracranial hemorrhage or mass effect identified. 2. Cavum septum pellucidum and vergae, a developmental variant. Laboratory Results WBC 9.04 10^3/uL (3.29-11.43) 08/29/24 09:54 RBC 5.75 10^6/uL (3.85-5.65) H 08/29/24 09:54 Hgb 16.90 g/dL (11.27-16.99) 08/29/24 09:54 Hct 49.3 % (37-53) 08/29/24 09:54 MCV 85.7 fl (82-101) 08/29/24 09:54 MCH 29.4 pg (27-33) 08/29/24 09:54 MCHC 34.3 g/dL (30-55) 08/29/24 09:54 RDW 12.6 % (12.1-15.1) 08/29/24 09:54 Plt Count 258 10^3/cmm (157-399) 08/29/24 09:54 MPV 8.5 fL (7.4-10.4) 08/29/24 09:54 Neut % (Auto) 70.0 % 08/29/24 09:54 Lymph % (Auto) 20.9 % 08/29/24 09:54 Saunders % (Auto) 7.4 % 08/29/24 09:54 Eos % (Auto) 1.1 % 08/29/24 09:54 Baso % (Auto) 0.2 % 08/29/24 09:54 Neut # (Auto) 6.32 10^3/uL (1.8-7.7) 08/29/24 09:54 Lymph # (Auto) 1.9 10^3/uL (0.8-4.8) 08/29/24 09:54 Saunders # (Auto) 0.7 10^3/uL (0.2-0.9) 08/29/24 09:54 Eos # (Auto) 0.1 10^3/uL (0.0-0.8) 08/29/24 09:54 Baso # (Auto) 0.0 10^3/uL (0.0-0.1) 08/29/24 09:54 Nucleated RBC % (auto) 0 % 08/29/24 09:54 Nucleated RBCs # 0.0 /100WBC 08/29/24 09:54 D-Dimer 0.40 ug/mLFEU (0-0.59) 08/29/24 09:54 Sodium 137 mmol/L (136-145) 08/29/24 09:54 Potassium 3.9 mmol/L (3.5-5.1) 08/29/24 09:54 Chloride 99 mmol/L (98-107) 08/29/24 09:54 Carbon Dioxide 27 mmol/L (22-29) 08/29/24 09:54 Anion Gap 14.9 (5-19) 08/29/24 09:54 BUN 9 mg/dL (6-20) 08/29/24 09:54 Creatinine 0.9 mg/dL (0.7-1.2) 08/29/24 09:54 GFR Calculation 92.5 mL/min (90-130) 08/29/24 09:54 Glucose 109 mg/dL (65-115) 08/29/24 09:54 Calculated Osmolality 283 mOsm/kg (285-295) L 08/29/24 09:54 Lactic Acid 1.5 mmol/L (0.5-2.2) 08/29/24 09:54 Calcium 9.2 mg/dL (8.5-10.5) 08/29/24 09:54 Total Bilirubin 0.5 mg/dL (0.15-1.2) 08/29/24 09:54 AST 17 U/L (0-40) 08/29/24 09:54 ALT 23 U/L (0-41) 08/29/24 09:54 Alkaline Phosphatase 71 U/L (40-130) 08/29/24 09:54 Troponin T Baseline < 6 ng/L (0-15) 08/29/24 09:54 Troponin T 120 Minute < 6.0 ng/L (0-15) 08/29/24 11:37 Delta Troponin T 0 ABS# (0-10) 08/29/24 11:37 Total Protein 7.2 g/dL (6.6-8.7) 08/29/24 09:54 Albumin 4.5 g/dL (3.5-5.2) 08/29/24 09:54 Globulin 2.7 g/dL (1.3-4.6) 08/29/24 09:54 All radiology interpretation(s) finalized by discharge Discharge Plan Discharge Patient Disposition: Home Clinical Impression: Syncopal episodes Condition: Stable Prescriptions: No Action desonide 0.05 % cream 1 applic TOPICAL BID MDD up to 2 weeks per month PRN (Reason: Rash) omeprazole 40 mg capsule,delayed release(DR/EC) 40 mg PO QAM propranolol 10 mg tablet 10 mg PO BID montelukast 10 mg tablet 10 mg PO QPM testosterone cypionate 200 mg/mL oil 100 mg IM Q7D fluticasone propionate 50 mcg/actuation spray,suspension 1 spray INTRANASAL DAILY Discharge Orders: Discharge ED (Routine); Ordered 08/29/24 Ordered By: Jacqueline Galvez Referrals: Emperatriz Mc, [employer] PROJECT MANAGER [Primary Care Provider, Nurse Practitioner] Discharge Diet: Usual diet Discharge Activity: Increase activity as tolerated Patient Instructions: Syncope (ED), Opioid Safety, Pain Management, Patient Portal & Moises Instructions Activity Restrictions/Additional Instructions: Dr. Sanchez has requested that you have outpatient 30-day heart monitor, sleep deprived EEG, records from your visit at [facility] and follow-up with her in 2 to 4 weeks. I have sent this to case management but if that does not work please follow with your PCP to arrange these studies. And please follow-up with your primary care provider concerning this visit in the next 3 to 5 days. Thank you for choosing [facility] for your healthcare needs today. You have been screened and evaluated and felt safe for discharge. Health conditions do change or evolve sometimes and as such it is important that you follow up with your Primary Doctor to be re checked, 3-5 days is a general good time frame for follow up. You are always welcome to return to the ED for re assessment if your symptoms are worsening or you have new concerns Print Language: Finnish Coding Level of Care Code ED Concert Or Lecture Hall Manager for Neva Hernandez
[2024-08-29 09:59] VITALS: BP 133/83; PULSE 88; O2SAT 97
[2024-08-29 10:02] LABS: Basophils % 0.2 %; Eosinophils # 0.1 10^3/uL (0.0-0.8); Eosinophils % 1.1 %; Hematocrit 49.3 % (37-53); Lymphocytes # 1.9 10^3/uL (0.8-4.8); Lymphocytes % 20.9 %; Mean Corpuscular HGB Conc 34.3 g/dL (30-55); Mean Corpuscular Hemoglobin 29.4 pg (27-33); Mean Corpuscular Volume 85.7 fl (82-101); Mean Platelet Volume 8.5 fL (7.4-10.4); Monocytes # 0.7 10^3/uL (0.2-0.9); Monocytes % 7.4 %; Neutrophils # 6.32 10^3/uL (1.8-7.7); Nucleated Red Blood Cells % 0 %; Platelet Count 258 10^3/cmm (157-399); Red Blood Count 5.75 10^6/uL (3.85-5.65); Red Cell Distribution Width 12.6 % (12.1-15.1); White Blood Count 9.04 10^3/uL (3.29-11.43)
--- NOTE | 2024-08-29 10:03 | XR_ITS ---
WS: [id number] Exam: XR chest 1V portable [id number] Date/Time of Exam: 08/29/2024 10:18 AM Reason For Exam: syncope No priors. The lungs are fully inflated and clear. Normal cardiomediastinal silhouette. No pleural effusions. Old healed LEFT clavicle fracture. XR/XR chest 1V portable [id number] IMPRESSION: 1. Negative chest.
--- NOTE | 2024-08-29 10:16 | PC.PHAR ---
[facility] 08/29/24 10:16am
[2024-08-29 10:18] LABS: Lactic Sepsis W/Reflex 1.5 mmol/L (0.5-2.2)
[2024-08-29 10:19] LABS: Troponin(5th) Baseline < 6 ng/L (0-15)
[2024-08-29 10:47] LABS: Alanine Aminotransferase 23 U/L (0-41); Albumin Level 4.5 g/dL (3.5-5.2); Alkaline Phosphatase 71 U/L (40-130); Anion Gap 14.9 (5-19); Aspartate Amino Transferase 17 U/L (0-40); Blood Urea Nitrogen 9 mg/dL (6-20); Calcium 9.2 mg/dL (8.5-10.5); Carbon Dioxide 27 mmol/L (22-29); Chloride 99 mmol/L (98-107); Creatinine Clr Calc Pharmacy 138.7396; Globulin 2.7 g/dL (1.3-4.6); Glomerular Filtration Rate 92.5 mL/min (90-130); Glucose 109 mg/dL (65-115); Osmolality Calculated 283 mOsm/kg (285-295); Potassium 3.9 mmol/L (3.5-5.1); Sodium 137 mmol/L (136-145); Total Bilirubin 0.5 mg/dL (0.15-1.2); Total Protein 7.2 g/dL (6.6-8.7)
--- NOTE | 2024-08-29 10:52 | PC.NURSE ---
pt and family report pt having syncopal episode in bed. pt family states last approx 30 seconds, pt eyes were open and arms stiff against chest. pt denies pain after, states felt a little weak post event. Dr. Galvez notified. pt also re-educated on need for urine, states will be awhile and refusing straight catheter.
--- NOTE | 2024-08-29 11:33 | CTR_ITS ---
PROCEDURE INFORMATION: Exam: CT Head Without Contrast Exam date and time: 08/29/2024 11:39 AM Age: 43 years old Clinical indication: Syncope and collapse; Additional info: Synco(e TECHNIQUE: Imaging protocol: Computed tomography of the head without contrast. Total images: 330 Radiation optimization: All CT scans at this facility use at least one of these dose optimization techniques: automated exposure control; mA and/or kV adjustment per patient size (includes targeted exams where dose is matched to clinical indication); or iterative reconstruction. COMPARISON: No relevant prior studies available. RADIATION DOSE METRICS: Total DLP (mGy-cm): 1437.08 FINDINGS: Brain: No midline shift. Within the brain parenchyma minimally low-lying cerebellar tonsils extending 2 mm inferior to the plane of the foramen magnum, without evidence of significant tonsillar deformity. Within the brain parenchyma, no focus of abnormal attenuation is evident. There is preservation of enrique-white matter differentiation. No acute extra-axial fluid collection or mass effect noted. Cerebral ventricles: Cavum septum pellucidum and vergae, a developmental variant. No hydrocephalus. The ventricular system is open and the cerebral sulci are not effaced. Paranasal sinuses: Visualized paranasal sinuses are clear. Mastoid air cells: Visualized mastoid air cells are clear. Bones: No acute osseous abnormality identified. Soft tissues: No acute abnormality identified. Notes: Please note CT does not detect all acute ischemic abnormalities; if indicated, consider MRI with diffusion, or follow-up Head CT CT/CT head wo con* [id number] IMPRESSION: 1. No evidence of acute intracranial hemorrhage or mass effect identified. 2. Cavum septum pellucidum and vergae, a developmental variant.
[2024-08-29 11:50] VITALS: BP 158/86; O2SAT 98
[2024-08-29 12:02] LABS: Troponin 5 2HR < 6.0 ng/L (0-15); Troponin 5 2HR Delta 0 ABS# (0-10)
--- NOTE | 2024-08-29 12:09 | ECG_ITS ---
[facility] Test Date: 2024-08-29 Pat Name: Tod Rodriguez Department: Room: Gender: Male Clinical Outcomes Manager: : 1980 Requested By: Jacqueline Baez Order Number: [id number] Reading MD: Measurements Intervals [place] Rate: 71 P: 46 SD: 158 QRS: 74 QRSD: 94 T: 28 QT: 362 QTc: 395 Interpretive Statements SINUS RHYTHM [email or web address]
--- NOTE | 2024-08-29 12:29 | PC.NURSE ---
Educated pt on need for urine sample, denied catheter. Gave pt water per verbal order of Dr. Galvez.
--- NOTE | 2024-08-29 12:32 | PM.CONSULT ---
Providers/Reason For Consult Consulting Physician/Specialty*: Dr. Claritza Galvez Reason for Consult*: atypical syncope Attending Physician: Dr. Claritza Hopkins Primary Care Provider: J LUIS Brewer History of Present Illness History of Present Illness This is a 43-year-old man with a history of essential tremor since adolescence, presenting with recurrent syncopal episodes. The patient reports that the most recent episode occurred on Tuesday at 12:30 a.m. 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 The episodes begins with lightheadedness, tunnel vision, and a sensation of the heart pounding (not fast), followed by loss of consciousness. The patient describes a prodrome lasting 10-15 seconds before losing consciousness. Upon regaining consciousness, the patient feels as if waking from a dream, often with amnesia for the event and sometimes with random, unremembered dreams. The patient has had similar episodes two years ago, including one where they fell and sustained an injury near the eye. Previous extensive workup two years ago at [facility] included CT, MRI, and prolonged 3 day video EEG monitoring, all reportedly unremarkable. The patient denies chest pain and headaches (except for one headache a month ago, which was the first in a long time). There is no clear trigger for the episodes, and the patient denies any specific actions that bring them on. The [place] river and has experienced episodes while on the boat There is a history of anxiety and prior use of anxiety medication before starting testosterone therapy, but the patient distinguishes the current episodes from prior anxiety. The patient is concerned about the safety of driving and working given the unpredictability of the episodes. Fortunately, he is currently off the boat for a month. His father young of amyloidosis of the heart. He was in the [employer] before going to work on the river boat. 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 Review of Systems Const: Denies: fever(s), change in weight or fatigue Eyes: Denies: change in vision, blurry vision, blind spots, photophobia, eye discomfort, seeing flashes or other (Glaucoma) ENMT: Denies: odynophagia, hoarseness, change in hearing, tinnitus, sinus pain or other (Loss of taste/smell) Card: Reports: palpitations (More like his heart is pounding); Denies: chest pain, syncope or other (Calf cramps) Resp: Denies: dyspnea, non-productive cough, wheezing or hemoptysis GI: Denies: abdominal pain, nausea, heartburn, diarrhea, constipation or hematochezia : Denies: urinary frequency or urinary incontinence Musc: Denies: neck pain, muscle weakness or other (Muscle pain) Skin/Breast: Denies: rash, new lesions or breast mass Neuro: Reports: other (Sleep Apnea); Denies: headache(s), numbness in extremities, weakness in extremities, sensory changes, difficulty walking, Slurred speech present or seizure-like activity Psych: Denies: depression, irritability, memory loss, difficulty concentrating or other (Personality changes) Endo: Denies: polyuria, polydipsia, excessive sweating or change in body appearance Carlos/Lymph: Denies: easy bruising, easy bleeding or enlarged lymph nodes Medications/Allergies Home Medications ?Medication ?Instructions ?Recorded ?Confirmed ?Last Taken ?Type desonide 0.05 % topical cream 1 applic topical BID PRN Rash 08/29/24 08/29/24 Unknown History fluticasone propionate 50 1 spray intranasal DAILY 08/29/24 08/29/24 Unknown History mcg/actuation nasal spray,suspension montelukast 10 mg tablet 10 mg PO QPM 08/29/24 08/29/24 08/28/24 History omeprazole 40 mg capsule,delayed 40 mg PO QAM 08/29/24 08/29/24 08/28/24 History release propranolol 10 mg tablet 10 mg PO BID 08/29/24 08/29/24 08/29/24 History testosterone cypionate 200 mg/mL 100 mg IM Q7D 08/29/24 08/29/24 Unknown History intramuscular oil Allergies Allergy/AdvReac Type Severity Reaction Status Date / Time No Known Allergies Allergy Unverified 08/29/24 09:17 PFSH Acute PFSH: Social History Smoking and tobacco/nicotine status: former use of tobacco/nicotine Second hand smoke exposure: No Alcohol intake: current Alcohol intake frequency: few times a week Substance/Drug Use: never Adopted: No Caregiver/support person: Yes Lives independently: No Household members: spouse Housing: House Marital status: Number of children: 2 Highest education level completed: Some College, No Degree service: Yes status: Discharged branch: [employer] Current occupational exposures/hazards: No Pets and animals: Yes Sexually active: Yes Do you think of yourself as: Straight/Heterosexual Current gender identity: Male Special chapis needs: No Agree to transfusion: Yes Vitals/I&O/Wt Last Vital Signs Temp 98.0 F 08/29/24 09:10 Pulse 88 08/29/24 09:59 Resp 16 08/29/24 09:10 BP 133/83 08/29/24 09:59 Pulse Ox 97 08/29/24 09:59 O2 Del Method Room Air 08/29/24 09:59 08/28/24 08/29/24 08/29/24 22:59 06:59 14:59 Intake Total 0 / 0 Balance 0 / 0 Weight last 48 hrs Weight 249 lb Physical Exam Narrative: GENERAL: The patient was well-nourished with a healthy appearance and appropriately groomed. MENTAL STATUS: Orientation was full to 10 of 10 questions of orientation. Speech was fluent without word hesitation. No difficulty following a complex command. The affect was euthymic. CRANIAL NERVES: Visual silver were full to confrontation, direct and consensual. Extraocular movements were full without nystagmus. Both slow pursuit and saccadic eye movements were normal. PERRLA. Face was symmetric at rest and with grimace. Facial sensation was intact in all three distributions of the fifth cranial nerve bilaterally to touch. Hearing was intact to soft spoken voice. Tongue and palate were midline at rest and with protrusion of the tongue and elevation of the palate. Shoulders were symmetric at rest and with shoulder shrug. MOTOR: He has a very fit appearance. He has a fine postural tremor in all 4 extremities. SENSATION: Vibration intact distally. COORDINATION: Gtqoie-[id number], [id number]-bdhp-[id number] and rapid alternating movements were performed smoothly without evidence of tremor or ataxia. Stance was stable with the eyes open, as well as the eyes closed. DEEP TENDON REFLEXES: 2/4 throughout. GAIT: The patient was able to walk 10 feet down the arreola, make a normal turn and return to the exam room without event. Able to walk on tiptoes and heels. HEENT: His tongue is of normal size. NECK: Carotid upstroke was strong bilaterally without bruits. The thyroid was not enlarged and there were no palpable lymph nodes. CHEST: Clear to auscultation. CARDIOVASCULAR: The heart sounds were normal without murmur or gallop. Regular rate and rhythm. EXTREMITIES: He looks very fit Data 08/29/24 09:54 08/29/24 09:54 CT Head: My impression: Cavum septum pellucidum otherwise normal A&P Assessment and plan (1) Seizures: Had multiple episodes identical to the episode that occurred this morning with his videotaped. He had abrupt loss of contact with reality, fell backward onto the stretcher with his eyes rolled back, initially the right arm flopped and then the left arm flopped. He was not fully still and had a few tremulous movements on the right. No versive head or eye movement. He came to with the appearance of an electrical shock with his eyes wide and arms flexed but the right arm was more flexed than the left. It appeared to be another 10 seconds before he could talk. It is not clear whether these are temporal lobe seizures or panic attacks. This could be either 1. Recurrent syncopal episodes : The patient presents with recurrent syncopal episodes characterized by prodromal lightheadedness, tunnel vision, heart pounding, and subsequent loss of consciousness with amnesia and dream-like experiences upon awakening. The differential diagnosis includes temporal lobe seizures (supported by the dream-like state and amnesia), panic attacks (noted as a possibility due to the sudden, overwhelming nature and amnestic features), and cardiac arrhythmia (given family history of amyloidosis and heart failure). Previous workup two years ago was unremarkable. The provider notes that the episodes are not clearly triggered by activity or position and that the patient denies chest pain and headaches. The provider is cautious about committing to a seizure diagnosis and starting anticonvulsant therapy due to the implications for driving and employment, especially given the limited number of recent episodes. The provider also notes that panic attacks are less likely but still possible, and that distinguishing between panic attacks and temporal lobe seizures can be challenging. - Arrange for EEG (brainwave test) to capture possible seizure activity. - Order 30-day heart monitor to evaluate for arrhythmias. - Order echocardiogram to assess cardiac function. - Order MRI of the brain to evaluate for structural abnormalities, particularly in the temporal lobes. - Obtain prior records from [facility] for review of previous workup. - Advise patient not to drive and to take a couple of weeks off work for safety. - No anticonvulsant medication at this time, pending further diagnostic clarification. - Schedule follow-up visit after completion of diagnostic testing. Essential tremor : Patient has a long-standing history of essential tremor since adolescence, confirmed by prior neurology evaluations and medical assessments. The tremor is noted on exam and is not associated with the syncopal episodes. There is no family history of essential tremor. Follow-up : Follow-up is planned after completion of diagnostic testing to reassess the patient's condition and determine further management. - Return to clinic after EEG, heart monitor, echocardiogram, and MRI are completed. 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 I talked to the patient and his about potential for treatment with anticonvulsant medication but are not recommending it. Echocardiogram would be burnett because that the family history of amyloidosis. I will see him back in my office in several weeks. PDMP PDMP Reviewed: Not Reviewed Coding Level of Care Code Acute Code for Chg Fwd Diagnoses Seizures R56.9
[2024-08-29 12:36] VITALS: BP 127/62; PULSE 87; O2SAT 98
[2024-08-29 12:47] VITALS: BP 126/87; PULSE 87; O2SAT 99
[2024-08-29 12:51] LABS: Bilirubin Urine Negative (Negative); Blood Urine Negative (Negative); Glucose Urine UA Negative (Normal); Ketones Urine Negative (Negative); Leukocyte Esterase Urine Negative (Negative); Nitrate Urine Negative (Negative); Protein Urine 1+ (Negative); Specific Gravity, Urine 1.024 (1.005-1.030); Urine Appearance Cloudy (CLEAR); Urine Color Yellow (Yellow)
[2024-08-29 12:56] LABS: Bacteria Urine None Seen /hpf; Hyaline Casts Urine 2.05 /lpf; RBC Urine 0-2 /hpf (0-2); Squamous Epithelial Cell Urine 0-5 /hpf (0-5); WBC Urine 0-5 /hpf (0-5)
[2024-08-29 12:58] LABS: Amphetamines Screen Urine Negative (Negative); Barbiturates Screen Urine Negative (Negative); Benzodiazepines Screen Urine Negative (Negative); Cocaine Screen Urine Negative (Negative); Opiate Screen Urine Negative (Negative); PCP Screen Urine Negative (Negative); THC Screen Urine Negative (Negative)
[2024-08-29 13:08] LABS: Add Urine Culture? No
== END 2024-08-29 12:50 | disposition home or self-care (01) ==
PROVIDERS: Emergency Provider Emergency Medicine; PCP Nurse Practitioner
DX: R55 Syncope and collapse (principal); Z87.891 Personal history of nicotine dependence
CPT/HCPCS: 36415; 70450; 71045; 80053; 80306; 81001; 83605; 84484; 85025; 85378; 93005; 99285

== ENCOUNTER → 2024-08-30 11:09 | Outpatient (BNVA) | payer OTHER, SELFPAY | PROVIDERS: PCP Nurse Practitioner; Referring Provider Specialist; Visit Provider Specialist | DX: R56.9 Unspecified convulsions (principal); R55 Syncope and collapse | CPT/HCPCS: 95819 ==

== ENCOUNTER 2024-09-18 10:00 | Outpatient (CLI) | payer OTHER, SELFPAY ==
--- NOTE | 2024-09-18 10:00 | USCV_ITS ---
Tod Rodriguez Age: 43 Gender: M : 1980 Exam Date: 09/18/2024 10:20 Ordering Phys: Katina Sanchez MD Technologist: ELLIE Exam Location: [facility] [place] Indication: Syncope and Collapse BP: 120 / 80 HR: 72 Rhythm: Sinus Technical Quality: Adequate MEASUREMENTS (Male / Female) Normal Values 2D ECHO LV Diastolic Diameter PLAX 5.5 cm 4.2 - 5.9 / 3.9 - 5.3 cm IVS Diastolic Thickness 1.1 cm 0.6 - 1.0 / 0.6 - 0.9 cm IVS Systolic Thickness 1.8 cm LVPW Diastolic Thickness 1.5 cm 0.6 - 1.0 / 0.6 - 0.9 cm LVPW Systolic Thickness 2.4 cm LVOT Diameter 2.4 cm LV Ejection Fraction 2D Teich 64.3 % LV Ejection Fraction MOD 4C 51.7 % LV Ejection Fraction MOD 2C 60.7 % LV Ejection Fraction 2C AL 62.1 % LA Diameter 3.8 cm RA Systolic Volume 4C AL 59.9 ml RA Systolic Volume 4C MOD 54.8 ml LA Sys Volume AL 49.9 cm cubed LA Sys Volume Index AL 20.5 cm cubed/m squared Aorta at Sinotubular Diameter 2.9 cm IVC Diameter 2.5 cm M-MODE LA Ao Ratio MM 1.3 AV Cusp Separation MM 2.1 cm DOPPLER AV Peak Velocity 98.0 cm/s LVOT Peak Velocity 65.0 cm/s AV Area Cont Eq vti 3.4 cm squared AV Area Cont Eq pk 2.9 cm squared MV Peak Velocity 58.0 cm/s MV Area PHT 3.1 cm squared Mitral E to A Ratio 1.0 TV Peak E Velocity 63.0 cm/s PV Peak Velocity 85.0 cm/s FINDINGS Left Ventricle Normal left ventricular size and systolic function, EF 62%. Mild left ventricular hypertrophy. No regional wall motion abnormalities. Grade I/IV diastolic dysfunction (abnormal relaxation filling pattern), normal to mildly elevated filling pressures. Right Ventricle The right ventricle is normal in size and function. Right Atrium The right atrium is normal in size. Left Atrium The left atrium is normal in size. Mitral Valve No gross abnormalities noted Aortic Valve No gross abnormalities noted Tricuspid Valve No gross abnormalities noted Pulmonic Valve No gross abnormalities noted Pericardium Trivial pericardial effusion. Aorta Normal ascending aorta dimension. IVC Normal IVC dimension with <50% respiratory change of the inferior vena cava. CONCLUSIONS Normal left ventricular size and systolic function, EF 62%. Mild left ventricular hypertrophy. No regional wall motion abnormalities. Grade I/IV diastolic dysfunction (abnormal relaxation filling pattern), normal to mildly elevated filling pressures. Trivial pericardial effusion. No gross valvular abnormalities. Normal cardiac chamber sizes There is no pericardial effusion. No similar previous studies are available for comparison Dr Ramin Whitaker MD FACC (Electronically Signed) Final Date: 20 September 2024 16:53 S
== END 2024-09-18 10:01 | disposition home or self-care (01) ==
LOC: RAD 10:00
PROVIDERS: PCP Nurse Practitioner; Visit Provider Specialist
DX: R55 Syncope and collapse (principal); R56.9 Unspecified convulsions; R93.1 Abnormal findings on diagnostic imaging of heart and coronary circulation
CPT/HCPCS: 93306

== ENCOUNTER 2024-09-27 14:36 | Emergency (ER) | payer OTHER, SELFPAY ==
--- OUTSIDE RECORDS SUMMARY | 2024-09-26 08:00 | XMS_ITS ---
Author Organization [facility] Address [address] [place] [address] Care Team Providers Care Lpn Rn Name Role Phone Ji Cordon Unavailable [phone] REASON FOR VISIT 6m f/u with kub cbc estradiol, cmp and test Encounters Encounter Location Date Provider Diagnosis [facility] [address] [facility] [address] [place] [address] 09/26/2024 Ji Cordon Plan Of Treatment Next Appt Details Provider Name:Milena Chelsie Selby, 03/15/2025 10:40:00 AM, [address], [place], [address], Progress Notes * DEBBIE KOWALSKI RDOB: 2 (44 yo M)Acc No.[id number]:09/26/2024 Progress Notes Patient: Ton DEBBIE RO Provider: Andrea Cordon MD :1980 A ge:43 Y S ex:Male Date:09/26/2024 Address:[address] [place], [place] [id number] Subjective: * Chief Complaints: * 6 m f/u with kub cbc estradiol, cmp and test * Electronic signature of Wilder Cordon MD on 2024 at 02:46 PM CDT Sign off status: Pending * Provider: Andrea Cordon MD Date: 09/26/2024 Generated for Printi ng/Faxing/eTransmitting on: 0 2024 02:46 PM CDT
[2024-09-27 14:39] VITALS: BP 122/82; PULSE 83; RESP 17; TEMP 36.7; O2SAT 96; BMI 29.1
--- OUTSIDE RECORDS SUMMARY | 2024-09-27 14:46 | XMS_ITS | Patient Health Record ---
Author Organization [facility] Address [address] [place] [address] Care Team Providers Care Bankruptcy Attorney Name Role Phone Ji Leong Unavailable [phone] Milena Lehman Unavailable [phone] Allergies Allergen (clinical drug ingredient) Drug/Non Drug Allergy documented on EMR Reaction Allergy Type Onset Date Status No Known Drug Allergy Unknown Drug Allergy Active Results Component Value Reference Range Flag Notes UA Without Micro-[place], [place] - [id number] Reviewed date:03/29/2024 10:20:01 AM Interpretation: Performing Lab: Notes/Report: Glucose - Bili 1+ Ketones +- Sp Eden 1.020 Blood 3+ pH 6.0 Protein 3+ Urobili +- Nitrites + Leukocytes 2+ Culture Urine 36037 Reviewed date:04/02/2024 09:23:27 AM Interpretation: Performing Lab: Notes/Report: Culture Urine DEBBIE Maloney Culture Urine t: Culture Urine Culture Urine [facility] [id number] Culture Urine n: Culture Urine Microbiology Culture Urine PROCEDURE: Culture Urine [O1] Culture Urine SOURCE: Urine BODY SITE: Culture Urine COLLECTED DATE/TIME: 03/29/2024 10:15 UTILITY TELLER RECEIVED DATE/TIME: 03/29/2024 15:31 UTILITY TELLER Culture Urine START DATE/TIME: 03/29/2024 15:31 UTILITY TELLER FREE TEXT SOURCE: Culture Urine FINAL REPORT Culture Urine Final Report [] Culture Urine Verified Date/Time: 03/31/2024 06:20 UTILITY TELLER Culture Urine No growth at 48 hours Culture Urine Order Comments Culture Urine O1: Culture Urine (Culture Urine 80050) Culture Urine Diagnosis Description: Hematuria, unspecified UA Without Micro-Auto, [place] - [address] Reviewed date:04/18/2024 11:05:03 AM Interpretation: Performing Lab: Notes/Report: Glucose - Bili - Ketones - Sp Eden 1.020 Blood 3+ pH 6.5 Protein 3+ Urobili - Nitrites - Leukocytes 1+ UA Without Micro-Auto, [place] - [address] Reviewed date:07/16/2024 02:56:52 PM Interpretation: Performing Lab: Notes/Report: Glucose 0 Bili 0 Ketones 0 Sp Eden 1.015 Blood 0 pH 7.0 Protein 0 Urobili 0 Nitrites 0 Leukocytes 0 Basic Metabolic Panel (BMP) 41838 Reviewed date:02/05/2024 08:32:32 AM Interpretation: Performing Lab: Notes/Report: Diagnosis Description: Hypercalciuria Sodium 140 136-145 MMOL/L Potassium 3.7 3.5-5.1 MMOL/L Chloride 104 98-107 MMOL/L CO2 26.8 20.0-31.0 MMOL/L Glucose Serum 111 71-110 MG/DL HI Testing p erformed at [facility], [address] [place] [address] [place] [address]. CLIA ID#: [id number] BUN 11 7-21 MG/DL Creat .98 .57-1.17 MG/DL D-xvkwqt-h-benzoquin one imine (NAPQI) is a metabolite of acetaminophen, [...] potential for falsely depressed results. GFR 97.9 NA Calculation pe rformed from GFR calculator provided by the National Kidney Foundation. Glomerular Filtration rate(GRF) is the best overall index of kidney function. Normal GFR varies according to age,sex, body size, and declines with age. The National Kidney Foundation recommends using the CKD-EPI Creatinine Equation(2020) to estimate GFR. Anion Gap 13 5-15 BUN/Creat Ratio 11.2 12.0-20.0 % LOW Calcium 9.8 8.7-10.4 MG/DL Osmo Serum,Calculated 290 280-300 MOSM/KG Testosterone Total 24041 Reviewed date:02/05/2024 08:32:42 AM Interpretation: Performing Lab: Notes/Report: Diagnosis Description: Hypercalciuria Testoster Tot 747.15 123.00-814.00 NG/DL Performed on the [employer] IM Analyzer Abdomen AP-[id number] Reviewed date:01/30/2024 03:03:14 PM Interpretation: Performing Lab: Notes/Report: btp=[id number]=iSite CT Abdomen, Pelvis w/ + w/o Contrast-48059 Reviewed date:06/02/2024 08:21:57 PM Interpretation: Performing Lab: Notes/Report: fks=[id number]&org=iSite Abdomen AP-59127 Reviewed date:01/31/2024 09:17:11 AM Interpretation: Performing Lab: Notes/Report: See Below For Report Abdomen AP Diagnosis Description: Calculus of kidney Read See Below For Report Culture Urine [id number] Reviewed date:03/24/2024 02:57:44 PM Interpretation: Performing Lab: Notes/Report: Culture Urine Enedina DEBBIE KOWALSKI Culture Urine t: Culture Urine Culture Urine Accessio [id number] Culture Urine n: Culture Urine Microbiology Culture Urine PROCEDURE: Culture Urine [] Culture Urine SOURCE: U CC BODY SITE: Culture Urine COLLECTED DATE/TIME: 03/22/2024 08:10 UTILITY TELLER RECEIVED DATE/TIME: 03/22/2024 11:37 UTILITY TELLER Culture Urine START DATE/TIME: 03/22/2024 11:37 UTILITY TELLER FREE TEXT SOURCE: Culture Urine FINAL REPORT Culture Urine Final Report [] Culture Urine Verified Date/Time: 03/24/2024 08:22 UTILITY TELLER Culture Urine <10,000 cfu/ml Mixed Superficial Jil CBC w\ Auto Diff 78412 Reviewed date:03/24/2024 02:55:00 PM Interpretation: Performing Lab: Notes/Report: WBC 8.2 4.5-11.0 X10'3 RBC 5.82 4.50-5.90 X10'6 Hgb 16.6 13.5-17.5 G/DL Hct 51.6 41.0-53.0 % MCV 88.7 80.0-100.0 FL MCH 28.5 27.0-31.0 PG MCHC 32.2 31.0-37.0 G/DL Platelet 308 150-400 X10'3 RDW-SD 41.5 35.0-49.0 FL RDW-CV 12.7 12.2-15.6 % MPV 9.3 9.2-12.0 FL Neutro Auto% 49.1 40.0-70.0 % Lymph Auto% 38.6 22.0-44.0 % Montgomery Auto% 9.4 3.0-7.0 % HI Eos Auto% 2.3 2.0-4.0 % Baso Auto% 0.2 0.0-1.0 % Imm Gran% .4 .0-.4 % Neutro Abs 4.04 .80-7.70 Absolute Neutrophil Count 4040 NA Lymph Abs 3.17 .10-4.10 Montgomery Abs .77 .20-1.00 Eos Abs .19 .00-.40 Baso Abs .02 .00-.20 Imm Gran Abs .03 .00-.10 NRBC# .00 .00-.20 NRBC% .00 .00-.20 /100 intact WBC's Comprehensive Metabolic Pane l (CMP) 10731 Reviewed date:03/24/2024 02:55:08 PM Interpretation: Performing Lab: Notes/Report: Glucose Serum 95 71-110 MG/DL Testing p erformed at [facility], [address] [place] [address] [place] [address]. CLIA ID#: [id number] BUN 16 7-21 MG/DL Creat 1.03 .57-1.17 MG/DL Use of this assay is not recommended for patients undergoing treatment with phenindione, due to the potential for falsely depressed results. Z-yobhko-e-benzoquin one imine (NAPQI) is a metabolite of acetaminophen, NAPQI concentrations of apparoximately 10 mg/L correlation to toxic levels of acetaminophen demonstrates a greater than or equil to 10% change in results. NAPQI concentrations greater than this may lead to falsely depressed results for patient samples. GFR 92.3 NA Calculation pe rformed from GFR calculator provided by the National [...] Total .6 .3-1.2 MG/DL Use of this assay is not recommended for patients undergoing treatment with eltrombopag due to the potential for falsely elevated results. AST/SGOT 18 15-37 UNIT/L ALT/SGPT 21 12-78 UNIT/L Osmo Serum,Calculated 289 280-300 MOSM/KG Estradiol Level 84206 Reviewed date:03/24/2024 02:55:21 PM Interpretation: Performing Lab: Notes/Report: Estradiol 71 NA Luteal Phase 33-133 Postmenopausal Female < 0-37 [...] may cross-react with antibodies used in immunoassays. Midcycle 146-526 Follicular Phase 11-165 Males < 0-52 Luteinizing Hormone 19446 Reviewed date:03/24/2024 02:55:28 PM Interpretation: Performing Lab: Notes/Report: Luteinizing Hrm <.07 NA Males 20-70 Years 1.5-9.3. Reference Ranges: Normal menstruating. Postmenopausal 15.9-54.0. <0.1-1.5. Luteal Phase 0.5-16.9. >70 Years 3.1-34.6. Follicular Phase 1.9-12.5. Contraceptives 0.7-5.6. Performed on the [employer] Solution IM Midcycle Peak 8.7-76.3. Prolactin 48755 Reviewed date:03/24/2024 02:56:05 PM Interpretation: Performing Lab: Notes/Report: Prolactin 10.3 NA Males Postmenopausal: 1.8?20.3 ng/mL Females : 9.7? > 200 ng/mL Non: 2.8?29.2 ng/mL 2.1?17.7 ng/mL Expected Values Testosterone Total 36791 Reviewed date:03/24/2024 02:56:09 PM Interpretation: Performing Lab: Notes/Report: Testoster Tot 603.29 123.00-814.00 NG/DL Performed on the [employer] IM Analyzer Stone Analysis ( Calculi) 82 365 Reviewed date:04/13/2024 08:19:03 PM Interpretation: Performing Lab: Notes/Report: Calculi Mass 167 NA Calculi Description See Note NA The total weight is 167 mg. Specimen consists of numerous brown and joe calculi fragments. Calculi Composition See Note NA composition determined [place] [address] INTERPRETIVE INFORMATION: Calculi (Stone) analysis Calculi composed primarily of: blood. Matrix components are not reported. The clinically significant crystalline components identified in calculi specimens Performed By: Moleculin Calculi are the products of physiological processes that yield 10% calcium phosphate (hydroxy- and carbonate- apatite). crystalline compounds in a matrix of biological compounds and Assembly Worker: Nirmal Rowe MD, PhD 90% calcium oxalate monohydrate, and CLIA Number: [id number] [address] are reported. Gross description may not be consistent with Retrograde Urography Reviewed date:04/05/2024 06:03:50 PM Interpretation: Performing Lab: Notes/Report: [id number]&org=iSite Retrograde Urography Reviewed date:04/05/2024 06:03:50 PM Interpretation: Performing Lab: Notes/Report: See Below For Report Retrograde Urography Read See Below For Report CT Abdomen, Pelvis w/ + w/o Contrast-[id number] Reviewed date:06/02/2024 08:49:27 PM Interpretation: Performing Lab: Notes/Report: See Below For Report CT Abdomen, Pelvis w/ + w/o Contrast Read See Below For Report Abdomen AP-[id number] Reviewed date:09/12/2024 11:53:30 AM Interpretation: Performing Lab: Notes/Report: dzz=[id number]&org=iSite CBC w\ Auto Diff 17611 Reviewed date:09/12/2024 11:53:15 AM Interpretation: Performing Lab: Notes/Report: Diagnosis Description: Hematuria, unspecified WBC 7.9 4.5-11.0 X10'3 RBC 5.69 4.50-5.90 X10'6 Hgb 16.5 13.5-17.5 G/DL Hct 49.6 41.0-53.0 % MCV 87.2 80.0-100.0 FL MCH 29.0 27.0-31.0 PG MCHC 33.3 31.0-37.0 G/DL Platelet 246 150-400 X10'3 RDW-SD 40.9 35.0-49.0 FL RDW-CV 12.7 12.2-15.6 % MPV 8.9 9.2-12.0 FL LOW Neutro Auto% 56.0 40.0-70.0 % Lymph Auto% 31.8 22.0-44.0 % Montgomery Auto% 9.5 3.0-7.0 % HI Eos Auto% 2.0 2.0-4.0 % Baso Auto% 0.3 0.0-1.0 % Imm Gran% .4 .0-.4 % Neutro Abs 4.40 .80-7.70 Absolute Neutrophil Count 4400 NA Lymph Abs 2.50 .10-4.10 Montgomery Abs .75 .20-1.00 Eos Abs .16 .00-.40 Baso Abs .02 .00-.20 Imm Gran Abs .03 .00-.10 NRBC# .00 .00-.20 NRBC% .00 .00-.20 /100 intact WBC's Comprehensive Metabolic Pane l (CMP) 46386 Reviewed date:09/12/2024 11:53:15 AM Interpretation: Performing Lab: Notes/Report: Diagnosis Description: Hematuria, unspecified Glucose Serum 92 71-110 MG/DL Testing p erformed at [address] [place] [address]. CLIA ID#: [id number] BUN 11 7-21 MG/DL Creat 1.11 .57-1.17 MG/DL W-qjkshd-v-benzoquin one imine (NAPQI) is a metabolite of acetaminophen, [...] the potential for falsely depressed results. GFR 84.3 NA Calculation pe rformed from GFR calculator provided by the National Kidney Foundation. Glomerular Filtration rate(GRF) is the best overall index of kidney function. Normal GFR varies according to age,sex, body size, and declines with age. The National Kidney Foundation recommends using the CKD-EPI Creatinine Equation(2020) to estimate GFR. BUN/Creat Ratio 9.9 12.0-20.0 % LOW Total Protein 6.8 5.8-8.0 G/DL Albumin 4.7 3.2-4.8 G/DL Globulin 2.1 2.3-3.5 G/DL LOW Alb/Glob 2.2 0.8-2.2 Calcium 9.4 8.7-10.4 MG/DL Sodium 142 136-145 MMOL/L Potassium 4.6 3.5-5.1 MMOL/L Chloride 104 98-107 MMOL/L CO2 29.7 20.0-31.0 MMOL/L Anion Gap 13 5-15 Alk Phos 74 46-116 Bili Total .4 .3-1.2 MG/DL Use of this assay is not recommended for patients undergoing treatment with eltrombopag due to the potential for falsely elevated results. AST/SGOT 22 15-37 UNIT/L ALT/SGPT 22 12-78 UNIT/L Osmo Serum,Calculated 293 280-300 MOSM/KG Estradiol Level 54467 Reviewed date:09/12/2024 11:53:15 AM Interpretation: Performing Lab: Notes/Report: Diagnosis Description: Hematuria, unspecified Estradiol 43 NA Postmenopausal Female < 0-37 Luteal Phase 33-133 Follicular Phase 11-165 Midcycle 146-526 Males < 0-52 Test performed with Siemens Estradiol reagent assay. [...] may cross-react with antibodies used in immunoassays. Testosterone Total 95610 Reviewed date:09/12/2024 11:53:15 AM Interpretation: Performing Lab: Notes/Report: Diagnosis Description: Hematuria, unspecified Testoster Tot 324.90 123.00-814.00 NG/DL Performed on the [employer] IM Analyzer Abdomen AP-45250 Reviewed date:09/12/2024 11:53:15 AM Interpretation: Performing Lab: Notes/Report: See Below For Report Abdomen AP Diagnosis Description: Hematuria, unspecified Read See Below For Report Reason For Referral Reason Kidney Stones Referring Provider First Name [place] Asael ff Referring Provider Last Name [place] Referring Provider [facility] Referred Organization [facility] Referred Provider Ji Leong Referred Address [address],[place], [place],[address], Referred Provider Specialty Urology Referral Priority Routine Reason Kidney stone Referring Provider First Name [place] Asael ff Referring Provider Last Name [place] Referring Provider [facility] Referred Organization [facility] Referred Provider Ji Leong Referred Address [address],[place], [place],[address], Referred Provider Specialty Urology Referral Priority Routine 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) Referring Provider First Name Regan Asael ff Referring Provider Last Name [place] Referring Provider [facility] Referred Organization [facility] Referred Provider Ji Leong Referred Address [address],[place], [place],[address], Referred Provider Specialty Urology Referral Priority Routine Medications Medication SIG (Take, Route, Frequency, Duration) Notes Start Date End Date Status Testosterone Cypionate 200 MG/ML Solution 0.25 mL Intramuscular twice weekly; Duration: 30 days 01/31/2024 Active Social History Social History Additional Details Category Social Info Options Details Migrated Social History Migrated Social History Smoking Status : Former tobacco user , History of tobacco use : , Alcohol intake : Section Notes: Smoke- Uses smokeless tobacco Yes-Drinking- 1-2 drinks per week Smoke- Uses smokeless tobacco Admits alcohol 1-2 drinks per week Caffiene admits 1-2 cups per day Smoke- Uses smokeless tobacco Admits alcohol 1-2 drinks per week Caffiene admits 1-2 cups per day Smoke- Uses smokeless tobacco Admits alcohol 1-2 drinks per week Caffiene admits 1-2 cups per day Smoke- Uses smokeless tobacco Admits alcohol 1-2 drinks per week Caffiene admits 1-2 cups per day Smoke- Uses smokeless tobacco Yes-Drinking- 1-2 drinks per week Problems Problem Type SNOMED Code ICD Code Onset Dates Problem Status W/U Status Risk Notes Problem Testicular hypofunction (209033863) Testicular hypofunction (E29.1) Active confirmed Problem Calculus of kidney (75282290) Calculus of kidney (N20.0) Active confirmed Problem Disorder of kidney and/or ureter (356250856) Disorder of kidney and ureter, unspecified (N28.9) Active confirmed Problem Hematuria (07643188) Hematuria, unspecified (R31.9) Active confirmed Problem Nephrolithiasis (59618953) Nephrolithiasis (N20.0) Active confirmed Vital Signs Heart Rate 88 /min 09/12/2024 Temperature 98.61 degrees Fahrenheit 09/12/2024 Height-cm 182.88 cm 09/12/2024 Blood pressure diastolic 90 mm Hg 09/12/2024 Weight-kg 113.58 kg 09/12/2024 Height 72.00 in 09/12/2024 Blood pressure systolic 145 mm Hg 09/12/2024 Weight 250.4 lbs 09/12/2024 BMI 33.96 kg/m2 09/12/2024 Procedures Procedure Date Ordered Date Performed Result Body Sit e PVR (Post Void Residual) 03/29/2024 03/29/2024 N/A Encounters Encounter Location Date Provider Diagnosis [facility] [address] [place] [address] [address] [place] [address] 12/08/2023 Ji Leong [facility] [address] [place] [address] 01/30/2024 Ji Leong Hypercalciuria R82.9 94 and Calculus of kidney N20.0 [facility] [address] [place] [address] 01/31/2024 Ji Leong [facility] [address] [place] [address] 01/31/2024 Ji Mayssay [facility] [address] [place] [address] 01/31/2024 Ji Leong Testicular hypofunct ion E29.1 [facility] [address] [place] [address] 01/31/2024 Ji Leong Testicular hypofunct ion E29.1 [facility] [address] [place] [address] 01/31/2024 Ji Leong [facility] [address] [place] [address] 03/05/2024 Ji Mayssay [facility] [address] [place] [address] 03/25/2024 Ji Leong Nephrolithiasis N20. 0 [facility] [address] [place] [address] 03/29/2024 Ji Leong [facility] [address] [place] [address] 03/29/2024 Ji Leong Hematuria, unspecifi ed R31.9 [facility] [address] [place] [address] 03/29/2024 Ji Mayssay [facility] [address] [place] [address] 04/18/2024 Ji Leong Calculus of kidney N20.0 [facility] [address] [place] [address] 04/18/2024 Ji Leong Calculus of kidney N20.0 [facility] [address] [place] [address] 05/30/2024 Ji Mayssay [facility] [address] [place] [address] 06/05/2024 Ji Leong [facility] [address] [place] [address] 07/17/2024 Ji Leong [facility] [address] [place] [address] 07/23/2024 Ji Leong Testicular hypofunct ion E29.1 [facility] [address] [place] [address] 09/12/2024 Ji Leong [facility] [address] [place] [address] 03/27/2024 Ji Leong [facility] [address] [place] [address] 01/31/2024 Ji Leong Testicular hypofunct ion E29.1 and Nephrolithiasis N20.0 [facility] [address] [place] [address] 03/29/2024 Ji Leong Hematuria, unspecifi ed R31.9 ; Low testosterone R79.89 ; Nephrolithiasis N20.0 and Feeling of incomplete bladder emptying R39.14 [facility] [address] [place] [address] 07/16/2024 Milena Lehman Calculus of kidney N20.0 and Disorder of kidney and ureter, unspecified N28.9 [facility] [address] [place] [address] 09/12/2024 Ji Leong Nephrolithiasis N20. 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 07/16/2024 Disorder of kidney and ureter, unspecified (ICD-10 - N28.9) DR. LEONG ORDERED CT FOR PATIENT IN , ALSO ORDERED LABS FOR HIS NEXT VISIT WITH HIM IN SEPTEMBER APPEARS PATIENT HAS KUB DUE AT SEPTEMBER'S APPT WELL 07/23/2024 Testicular hypofunction (ICD-10 - E29.1) 09/12/2024 Nephrolithiasis (ICD-10 - N20.0) 09/12/2024 Low testosterone (ICD-10 - R79.89) 03/29/2024 Nephrolithiasis (ICD-10 - N20.0) 09/12/2024 Testicular hypofunction (ICD-10 - E29.1) 04/18/2024 Testicular hypofunction (ICD-10 - E29.1) 01/30/2024 Calculus of kidney (ICD-10 - N20.0) 03/29/2024 Feeling of incomplete bladder emptying (ICD-10 - R39.14) 01/31/2024 Other Next avialable with me with [...] I discussed this with a colleague at [facility] who felt this would be the best course. 07/16/2024 Other PATIENT TO FOLLOW UP WITH DR LEONG IN SEPTEMBER WITH KUB AND TESTOSTERONE LABS PATIENT TO FOLLOW UP IN , OR AFTER HIS NEXT CT WITH EITHER MYSELF OR DR LEONG. 09/12/2024 Other 6 months with nurse practitioner with cbc, testosterone, estradiol, cmp With KUB. Refill testosterone. Continue 50mg twice weekly. 03/25/2024 Other Next available with me with cbc, cmp, testosterone, LH, prolactin, estradiol. change testosterone to 100mg once a week. Schedule cysto and left stone manipulation in March. The risks of infection, bleeding, damaging the urinary tract was discussed. Plan Of Treatment Future Test Test Name Order Date CBC w\ Auto Diff [id number] 02/05/2024 Comprehensive Metabolic Panel (CMP) 8005 3 02/05/2024 Estradiol Level 84089 02/05/2024 Luteinizing Hormone 33063 02/05/2024 Prolactin 12803 02/05/2024 Testosterone Total 01457 02/05/2024 CBC w\ Auto Diff 28985 08/05/2024 Comprehensive Metabolic Panel (CMP) 8005 3 08/05/2024 Estradiol Level 34617 08/05/2024 Testosterone Total 58043 08/05/2024 CT Abdomen, Pelvis w/ + w/o Contrast-741 78 12/04/2024 CBC w\ Auto Diff 33963 02/25/2025 Comprehensive Metabolic Panel (CMP) 8005 3 02/25/2025 Estradiol Level 14253 02/25/2025 Testosterone Total 26263 02/25/2025 Abdomen AP-[id number] 02/25/2025 Next Appt Details Provider Name:Milena Selby, 03/15/2025 10:40:00 AM, [address], [place], [address], Insurance Providers Payer Name Payer Address Payer Phone Subscriber Number Group Number Insured Name Patient Relationship to Insured Coverage Start Date Coverage End Date [employer] [address] [place] [phone] [id number] DEBBIE KOWALSKI Self - patient is the insured Medical (General) History Medical History History ICD Code Kidney Stones Low testosterone Surgical History Surgery Date(Month/Year) hemorrhoidectomy Vasectomy Throat surgery Kidney stone surgery Ureteral stent placement
--- OUTSIDE RECORDS SUMMARY | 2024-09-27 14:47 | XMS_ITS | Clinical Summary ---
Author Organization [facility] Address [address] [place] [address] Phone Care Team Providers Care Hospital Housekeeper Name Role Phone Unavailable Primary Care Provider Unavailabl e Allergies No known active allergies Medications clobetasoL (TEMOVATE) 0.05 % cream Apply one application. 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 Allergic rhinitis due to pollen 12/30/2022 Assessment & Plan (12/30/2022 2:16 PM CDT): Check lab today and will follow by phone Social History Tobacco Use Types Packs/Day Years Used Date Smoking Tobacco: Every Day Cigarettes Passive Smoke Exposure: Current Smokeless Tobacco: Never Alcohol Use Standard Drinks/Week Comments Yes 0 (1 standard drink = 0.6 oz pur e alcohol) Sex and Gender Information Value Date Recorded Sex Assigned at Not on file Legal Sex Male 2:06 PM CDT Gender Identity Not on file Sexual Orientation Not on file Last Filed Vital Signs Vital Sign Reading Time Taken Comments Blood Pressure - - Pulse - - Temperature - - Respiratory Rate - - Oxygen Saturation - - Inhaled Oxygen Concentration - - Weight 113.8 kg (250 lb 12.8 oz) 12/30/2022 1:25 PM CDT Height 182.9 cm (6') 12/30/2022 1:25 PM CDT Body Mass Index 34.01 12/30/2022 1:25 PM CDT Plan of Treatment Health Maintenance Due Date Last Done Comments Annual Depression Screening 1992 Annual Physical 09/28/1999 Hepatitis C Antibody Screen 09/28/1999 DTap/Tdap/Td Vaccines (1 - Tdap) 2000 Influenza Vaccine 11/05/2024 Insurance [facility]
--- OUTSIDE RECORDS SUMMARY | 2024-09-27 14:47 | XMS_ITS | Data Portability ---
Author Organization [facility] Address [address] [address] Assessment Encounter Date Assessment Date Assessment LastModified by Organization Details LastModified Time 12/21/2023 12/21/2023 Reviewed and discussed [facility] labs pt brought with him today. Document scribed by Santiago Murcia, Casework Supervisor. I was present during interview and exam. [...] 100 mg/mL intramuscul ar oil 2023 024 [facility] ([facility] [place], [address] [place], [address], 15:06:22 Patient TargetsNo targets recorded. Patient InstructionsNo instructions recorded. Reason for Referral None Reported. Problems Name Problem SNOMED Code Status Onset Date Resolution Date Notes Provider Name and Address Organization Details Recorded Time Tonsille ctomy Completed 200712/21/2023 Tonsillec gema, Uvulectom y; Date: 2007; 9 9:31AM by Eugene Gonzalez LPN, Office Visit; Promoted; acuity set as *; Santiago Murcia null, [facility] 17:10:20 [facility] l tremor [id number] Completed 201812/21/2023 Benign Essential Tremor; 9 9:31AM by Eugene Gonzalez LPN, Office Visit; Promoted; acuity set as *; [facility] 4 17:10:30 Alpha-ga l syndrome Active 2023 [facility]y Fiugeroa [facility] 16:33:54 Obstruct dhiraj sleep apnea syndrome [id number] Active 2023 Santiago [facility]cia [facility] 17:09:43 Testoste patel level below referenc e range 709684223 Active 2023 Santiago Murcia [facility] 17:19:36 Problem Notes None recorded. Procedures Surgical History Date Name Laterality Status Provider Name and Address Organization Details Recorded Time manipulation of displaced nasal septum completed [facility] 12/21/2023 16:36:14 Remove tonsils and adenoids completed [facility] 12/21/2023 16:36:46 ultrasonic fragmentation of urinary stone through percutaneous nephrostomy completed [facility] 12/21/2023 16:37:00 Imaging Results None recorded. [...] Address Organization Details Last Updated DateTime 4 383126. 19 g 34.9 kg/m2 180.34 cm 97 % 97 % 108 /min 20 /min Reny Figueroa [facility] 16:32:22 Social History Question Answer Notes LastModified by Organizat ion Details LastModified Time Tobacco Smoking Status Former Smoker Reny marley [facility] 12/21/2023 16:35:53 What Is Your Level Of Caffeine Consumption? Moderate [email or web address] Information not available 12/21/2023 When Did You Quit Smoking? 1-5yearssincel astcigarette [email or web address] Information not available 12/21/2023 What Was The Date Of Your Most Recent Tobacco Screening? 12/21/2023 [email or web address] Information not available 12/21/2023 Sex: Unknown Functional Status Question Answer Note LastModified by Organizat ion Details LastModified Time Do you use any illicit or recreational drugs? No Information not available 12/21/2023 Do you or have you ever used any other forms of tobacco or nicotine? No [email or web address] Information not available 12/21/2023 What is your level of alcohol consumption? Occasional [email or web address] Information not available 12/21/2023 Do you or have you ever used any nicotine-free cigarettes, vape, or chewing tobacco? No [email or web address] Information not available 12/21/2023 Mental Status None recorded. Family History Relationship Description Onset Age of this Age Resolved Age Notes LastModified by Organization Details LastModified Time Father Essential hypertension [email or web address] Not available 16:34:34 Paternal Grandmother Neoplasm of brain [email or web address] Not available 2023 16:34:52 Notes:Father Prediabetic. Medical History No medical history recorded. Immunizations Vaccine Type Date Status Note Provider Nam e and Address Organization Details Recorded Time Tdap 3 completed Not Available [facility]/02/2022 02:50:43 Influenza, split virus, trivalent, preservative 5 completed Not Available [facility] 10/02/2022 02:50:44 COVID-19, mRNA, LNP-S, PF, 100 mcg/0.5mL dose or 50 mcg/0.25mL dose 2 completed Reny marley [facility] 12/21/2023 16:32:34 Influenza, split virus, trivalent, preservative 3 completed Reny marley [facility] 12/21/2023 16:32:34 Past Encounters Encounter ID Performer Location Encounter Start Date Encounter Closed Date Diagnosis/Indication Diagnosis SNOMED-CT Code Diagnosis ICD10 Code Diagnosis Note [id number] Steven Salomon DO [facility] ([facility] [address] [place] [id number] 12/21/2023 16:25:17 12/22/2023 08:53:01 Obstructive sleep apnea syndrome 06867323 G47.33 Dx in 2021, using CPAP, tolerating well. Testostero ne level below reference range 974690379 R89.1 Discussed Testostero ne, options of injection [...] ID Guarantor Name 02/18/2024 1 [employer] [id number] Tod Rodriguez [id number] Tod Rodriguez Notes Date Note Type Note Provider Name and Address Organization Details Recorded Time 12/21/2023 text/html Annual WellnessReported by PatientSocial/Behavior al HistoryFor diet and nutrition, patient reportshealthy diet. For fracture risk, patient reportsno history of fractures,no recent explained fracture,no sudden unexplained fractures, andno previous musculoskeletal injuries. For physical activity, patient reportsexercises on a regular basis,recent increase in physical activity, andgood physical condition. For additional lifestyle factors, patient reportsno tobacco useandno alcohol intake.Mental Status:For depression risk, patient reportsloss of interest in activities,significant changes in weight,sleep disturbances or insomnia,agitated,loss of energy,feelings of worthlessness or guilt,history of mood disorders, andhistory of depressionbut reportsnever feels sad, empty, or tearfulandno thoughts of suicide.Functional AbilityFor hearing, patient reportsno loss of hearing. For vision, patient reportsno vision problems(wears corrective lenses).ROS as noted in the HPI Pt presents to establish care, previous pcp was [facility]. Generally healthy. No significant Pmhx other than [...] at night. [facility]23:TPO wnl.TSH 1.01.T4 borderline low.Vit D 29.B12 391.Total Chol 150, LDL 93.8, Tri 131, HDL 30.Glucose 98.A1c 5.5.AST 16, ALT 19.LH 2. Steven Salomon, DO [address] [place] [address], [phone], [facility], [place] 12/21/2023 17:30:05
--- OUTSIDE RECORDS SUMMARY | 2024-09-27 14:47 | XMS_ITS | Clinical Summary ---
Author Organization [facility] Address [address] [place] [address] Care Team Providers Care Pulmonary Physical Therapist Name Role Phone Unavailable Primary Care Provider Unavailabl e Social History Tobacco Use Types Packs/Day Years Used Date Smoking Tobacco: Never Assessed Sex and Gender Information Value Date Recorded Sex Assigned at Not on file Legal Sex Male 9:26 PM CDT Gender Identity Not on file Sexual Orientation Not on file Plan of Treatment Health Maintenance Due Date Last Done Comments HPV VACCINES (1 - Male 3-dos e series) 1996 HEPATITIS B VACCINES (3 of 3 - 19+ 3-dose series) 02/07/2002 12/13/2001, 01/06/2001, 11/09/2000 INFLUENZA VACCINE (#1) 2024 9, 12/20/2017, 11/22/2016, Additional history exists DTAP/TDAP/TD VACCINES (4 - T d or Tdap) 06/12/2030 06/12/2020, 11/30/2012, 11/05/2012 Insurance [facility]
--- NOTE | 2024-09-27 15:27 | ECG_ITS ---
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
--- NOTE | 2024-09-27 15:29 | W.ED.SYNCOPE ---
HPI - Syncope General: Chief Complaint: Syncope Stated Complaint: syncope/feels edgy Time Seen by Provider: 09/27/24 15:27 History of Present Illness: 44-year-old man with a history of seizures who follows with neurology who presents the emergency room with lightheadedness that he thinks might just be an extended panic attack for the last few days. Says he felt like his got a pass out. He says he can fight my way out of it . He feels on edge. He said he might also be one of his seizures. Related Data Home Medications ?Medication ?Instructions ?Recorded ?Confirmed desonide 0.05 % topical cream 1 applic topical BID PRN Rash 08/29/24 08/30/24 fluticasone propionate 50 1 spray intranasal DAILY 08/29/24 08/30/24 mcg/actuation nasal spray,suspension montelukast 10 mg tablet 10 mg PO QPM 08/29/24 08/30/24 omeprazole 40 mg capsule,delayed 40 mg PO QAM 08/29/24 08/30/24 release propranolol 10 mg tablet 10 mg PO BID 08/29/24 08/30/24 testosterone cypionate 200 mg/mL 100 mg IM Q7D 08/29/24 08/30/24 intramuscular oil Allergies Allergy/AdvReac Type Severity Reaction Status Date / Time No Known Allergies Allergy Verified 08/30/24 11:02 Review of Systems Narrative: Constitutional symptoms: Negative except as documented in HPI. Skin symptoms: Negative except as documented in HPI. Eye symptoms: Negative except as documented in HPI. ENMT symptoms: Negative except as documented in HPI. Respiratory symptoms: Negative except as documented in HPI. Cardiovascular symptoms: Negative except as documented in HPI. Gastrointestinal symptoms: Negative except as documented in HPI. Genitourinary symptoms: Negative except as documented in HPI. Musculoskeletal symptoms: Negative except as documented in HPI. Neurologic symptoms: Negative except as documented in HPI. Psychiatric symptoms: Negative except as documented in HPI. Endocrine symptoms: Negative except as documented in HPI. PFSH ED PFSH: Social History Smoking and tobacco/nicotine status: never used tobacco/nicotine Second hand smoke exposure: No Alcohol intake: current Alcohol intake frequency: few times a week Substance/Drug Use: never Adopted: No Caregiver/support person: Yes Lives independently: No Household members: spouse Housing: House Marital status: Number of children: 2 Highest education level completed: Some College, No Degree service: Yes status: Discharged branch: [employer] Current occupational exposures/hazards: No Pets and animals: Yes Sexually active: Yes Do you think of yourself as: Straight/Heterosexual Current gender identity: Male Special chapis needs: No Agree to transfusion: Yes Physical Exam Narrative: EXAM NARRATIVE: General: Alert, no acute distress. Skin: Warm, dry. Head: Normocephalic, atraumatic. Neck: Supple, trachea midline. Eye: Extraocular movements are intact. Ears, nose, mouth and throat: mucosa moist. Cardiovascular: Regular, Normal peripheral perfusion. Respiratory: Lungs are clear to auscultation, respirations are non-labored, breath sounds are equal, Symmetrical chest wall expansion. Gastrointestinal: Soft, Nontender, Non distended Musculoskeletal: Normal ROM, no deformity. Neurological: Alert and oriented, No focal neurological deficit observed. Psychiatric: Cooperative, appropriate mood & affect. Course Vital Signs: Vital signs: Vital Signs Temperature 98.1 F 09/27/24 14:39 Pulse Rate 74 09/27/24 15:53 Respiratory Rate 17 09/27/24 14:39 Blood Pressure 114/76 09/27/24 15:53 Pulse Oximetry 96 09/27/24 14:39 Oxygen Delivery Me thod Room Air 09/27/24 14:39 MDM - Syncope Medical Decision Making Medical decision making: Differential diagnosis for patient presenting with generalized weakness including but not limited to and based on the above HPI, review of systems and physical exam: Sepsis. Dehydration. Renal failure. Electrolyte abnormalities. Anemia. Congestive heart failure. Hypotension. Coronary syndrome. Hepatitis. Cirrhosis. Infections such as pneumonia, urinary tract infection, Tick bourne illness, Cellulitis, Viral infections including influenza and Covid-19. Workup: labwork and lab/exam driven imaging ordered to evaluate, rule in and rule out above pathologies. EKG: Time 1530. Rate 67. Normal sinus rhythm, No ST-T changes, no ectopy, normal NH & QRS intervals, This was reviewed and interpreted by myself the ER physician at 1535 Lab Review: Laboratory results were reviewed and interpreted by myself the emergency room physician. No leukocytosis. No anemia. No renal failure. Initial troponin is negative. I reviewed the patient's medical record. Reexamination: Patient remained stable. No increased work of breathing. No altered mental status. No focal motor deficits. Assessment and plan: Lightheadedness Possible anxiety ? IV Ativan in the emergency room. - Discharged home - Discussed plan with patient. Answered any questions. - Evaluation and treatment of this problem were appropriate in the emergency setting. Lab Data 09/27/24 15:43 09/27/24 15:43 Laboratory Results WBC 9.54 10^3/uL (3.29-11.43) 09/27/24 15:43 RBC 5.48 10^6/uL (3.85-5.65) 09/27/24 15:43 Hgb 16.70 g/dL (11.27-16.99) 09/27/24 15:43 Hct 46.9 % (37-53) 09/27/24 15:43 MCV 85.6 fl (82-101) 09/27/24 15:43 MCH 30.5 pg (27-33) 09/27/24 15:43 MCHC 35.6 g/dL (30-55) 09/27/24 15:43 RDW 12.8 % (12.1-15.1) 09/27/24 15:43 Plt Count 257 10^3/cmm (157-399) 09/27/24 15:43 MPV 8.9 fL (7.4-10.4) 09/27/24 15:43 Neut % (Auto) 61.9 % 09/27/24 15:43 Lymph % (Auto) 28.2 % 09/27/24 15:43 [place] % (Auto) 8.5 % 09/27/24 15:43 Eos % (Auto) 0.8 % 09/27/24 15:43 Baso % (Auto) 0.2 % 09/27/24 15:43 Neut # (Auto) 5.90 10^3/uL (1.8-7.7) 09/27/24 15:43 Lymph # (Auto) 2.7 10^3/uL (0.8-4.8) 09/27/24 15:43 [place] # (Auto) 0.8 10^3/uL (0.2-0.9) 09/27/24 15:43 Eos # (Auto) 0.1 10^3/uL (0.0-0.8) 09/27/24 15:43 Baso # (Auto) 0.0 10^3/uL (0.0-0.1) 09/27/24 15:43 Nucleated RBC % (auto) 0 % 09/27/24 15:43 Nucleated RBCs # 0.0 /100WBC 09/27/24 15:43 Specimen Type Arterial 09/27/24 16:18 Sample Site Brachial, right 09/27/24 16:18 ABG pH 7.43 (7.35-7.45) 09/27/24 16:18 ABG pCO2 40.4 mmHg (35-45) 09/27/24 16:18 ABG pO2 67.1 mmHg (80.0-100.0) L 09/27/24 16:18 ABG PO2/FiO2 Ratio 319 09/27/24 16:18 ABG HCO3 26.8 mmol/L (22-26) H 09/27/24 16:18 ABG O2 Saturation 94.7 09/27/24 16:18 ABG Base Excess 2.2 mmol/L (-2.0-2.0) H 09/27/24 16:18 Shaquille Test N/a 09/27/24 16:18 A-a O2 Gradient 4.2 mmHg (5-10) L 09/27/24 16:18 Hematocrit 51.7 % (42-52) 09/27/24 16:18 Hgb O2 Saturation 93.0 % (95-100) L 09/27/24 16:18 Carboxyhemoglobin 1.0 %THgb (0.4-20.1) 09/27/24 16:18 Methemoglobin 0.8 % (0.4-1.5) 09/27/24 16:18 Total Hemoglobin 16.9 g/dL (14-18) 09/27/24 16:18 Sodium 139.0 mmol/L (131-143) 09/27/24 16:18 Potassium 3.7 mmol/L (3.5-5.0) 09/27/24 16:18 Glucose 92.0 mg/dL (70-115) 09/27/24 16:18 Ionized Calcium 1.2 mmol/L (1.1-1.4) 09/27/24 16:18 O2 Delivery Device Room air 09/27/24 16:18 FiO2 21.0 % 09/27/24 16:18 Technology Manager ID Amh 09/27/24 16:18 Sodium 140 mmol/L (136-145) 09/27/24 15:43 Potassium 4.1 mmol/L (3.5-5.1) 09/27/24 15:43 Chloride 101 mmol/L (98-107) 09/27/24 15:43 Carbon Dioxide 27 mmol/L (22-29) 09/27/24 15:43 Anion Gap 16.1 (5-19) 09/27/24 15:43 BUN 16 mg/dL (6-20) 09/27/24 15:43 Creatinine 1.0 mg/dL (0.7-1.2) 09/27/24 15:43 GFR Calculation 81.6 mL/min (90-130) L 09/27/24 15:43 Glucose 75 mg/dL (65-115) 09/27/24 15:43 Calculated Osmolality 290 mOsm/kg (285-295) 09/27/24 15:43 Lactic Acid 1.0 mmol/L (0.5-2.2) 09/27/24 15:43 Calcium 9.4 mg/dL (8.5-10.5) 09/27/24 15:43 Total Bilirubin 0.4 mg/dL (0.15-1.2) 09/27/24 15:43 AST 16 U/L (0-40) 09/27/24 15:43 ALT 16 U/L (0-41) 09/27/24 15:43 Alkaline Phosphatase 65 U/L (40-130) 09/27/24 15:43 Troponin T Baseline < 6 ng/L (0-15) 09/27/24 15:43 Total Protein 6.8 g/dL (6.6-8.7) 09/27/24 15:43 Albumin 4.4 g/dL (3.5-5.2) 09/27/24 15:43 Globulin 2.4 g/dL (1.3-4.6) 09/27/24 15:43 No radiology studies performed this visit Discharge Plan Discharge Patient Disposition: Home Clinical Impression: Lightheadedness Condition: Stable Prescriptions: No Action desonide 0.05 % cream 1 applic TOPICAL BID MDD up to 2 weeks per month PRN (Reason: Rash) omeprazole 40 mg capsule,delayed release(DR/EC) 40 mg PO QAM propranolol 10 mg tablet 10 mg PO BID montelukast 10 mg tablet 10 mg PO QPM testosterone cypionate 200 mg/mL oil 100 mg IM Q7D fluticasone propionate 50 mcg/actuation spray,suspension 1 spray INTRANASAL DAILY Discharge Orders: Discharge ED (Routine); Ordered 09/27/24 Ordered By: Jacqueline Galvez Referrals: Emperatriz Mc FNP [Primary Care Provider, Nurse Practitioner] Discharge Diet: Usual diet Discharge Activity: Increase activity as tolerated Patient Instructions: Opioid Safety, Pain Management, Patient Portal & Moises Instructions Activity Restrictions/Additional Instructions: Thank you for choosing [facility] for your healthcare needs today. You have been screened and evaluated and felt safe for discharge. Health conditions do change or evolve sometimes and as such it is important that you follow up with your Primary Doctor to be re checked, 3-5 days is a general good time frame for follow up. You are always welcome to return to the ED for re assessment if your symptoms are worsening or you have new concerns Print Language: Kazakh Coding Level of Care Code ED Cash Management Associate for Neva Hernandez
[2024-09-27 15:53] VITALS: BP 109/80; BP 112/75; BP 114/76; PULSE 74; PULSE 79; PULSE 93
[2024-09-27] MEDS: LORazepam 1 MG/0.5 ML injection IVP (16:02)
[2024-09-27 16:11] LABS: Hematocrit 46.9 % (37-53); Hemoglobin 16.70 g/dL (11.27-16.99); Mean Corpuscular HGB Conc 35.6 g/dL (30-55); Mean Corpuscular Hemoglobin 30.5 pg (27-33); Mean Corpuscular Volume 85.6 fl (82-101); Nucleated Red Blood Cells % 0 %; Platelet Count 257 10^3/cmm (157-399); Red Blood Count 5.48 10^6/uL (3.85-5.65); White Blood Count 9.54 10^3/uL (3.29-11.43)
[2024-09-27 16:21] LABS: Alanine Aminotransferase 16 U/L (0-41); Albumin Level 4.4 g/dL (3.5-5.2); Alkaline Phosphatase 65 U/L (40-130); Anion Gap 16.1 (5-19); Aspartate Amino Transferase 16 U/L (0-40); Blood Urea Nitrogen 16 mg/dL (6-20); Calcium 9.4 mg/dL (8.5-10.5); Carbon Dioxide 27 mmol/L (22-29); Chloride 101 mmol/L (98-107); Creatinine Clr Calc Pharmacy 115.2802; Globulin 2.4 g/dL (1.3-4.6); Glucose 75 mg/dL (65-115); Lactic Sepsis W/Reflex 1.0 mmol/L (0.5-2.2); Osmolality Calculated 290 mOsm/kg (285-295); Potassium 4.1 mmol/L (3.5-5.1); Sodium 140 mmol/L (136-145); Total Protein 6.8 g/dL (6.6-8.7)
[2024-09-27 16:29] LABS: ABG PCO2 40.4 mmHg (35-45); ABG PH Result 7.43 (7.35-7.45); Alveolar-Arterial Oxygen Gradi 4.2 mmHg (5-10); Arterial Blood Gas Hematocrit 51.7 % (42-52); Blood Gas Operator Identificat AMH; Blood Gas Sample Site Brachial, right; Blood Gas Sample Type Arterial; Carboxyhemoglobin 1.0 %THgb (0.4-20.1); Glucose Level-ABG 92.0 mg/dL (70-115); HCO3 ABG 26.8 mmol/L (22-26); Ionized Calcium Level - ABG 1.2 mmol/L (1.1-1.4); Methemoglobin 0.8 % (0.4-1.5); Oxygen Saturation ABG 94.7; PO2 ABG 67.1 mmHg (80.0-100.0); PO2 FiO2 Ratio Arterial Blood 319; Potassium Level - ABG 3.7 mmol/L (3.5-5.0); Sodium Level - ABG 139.0 mmol/L (131-143)
[2024-09-27 16:30] LABS: Troponin(5th) Baseline < 6 ng/L (0-15)
[2024-09-27 16:52] VITALS: BP 112/75; PULSE 66; O2SAT 97
== END 2024-09-27 17:27 | disposition home or self-care (01) ==
PROVIDERS: Emergency Provider Emergency Medicine; PCP Nurse Practitioner
DX: R42 Dizziness and giddiness (principal)
CPT/HCPCS: 36600; 80051; 80053; 82330; 82805; 83605; 84484; 85025; 93005; 96374; 99284; J2060

== ENCOUNTER → 2024-10-01 12:03 | Outpatient (BNVA) | payer OTHER, SELFPAY | PROVIDERS: PCP Nurse Practitioner; Visit Provider Specialist | DX: Q28.2 Arteriovenous malformation of cerebral vessels (principal); R56.9 Unspecified convulsions | CPT/HCPCS: 99205 ==

== ENCOUNTER 2024-10-05 11:27 | Outpatient (CLI) | payer OTHER, SELFPAY ==
--- NOTE | 2024-10-05 12:00 | MR_ITS ---
WS: [id number] MRA ANGIOGRAPHY [place] HISTORY: R51.9 - Headache, unspecified COMPARISON: None available. TECHNIQUE: 3-D MR angiography is performed of the [place] of [place]. All images are reviewed including source images. Distal vertebral and basilar arteries are intact with no significant stenosis or plaque. Posterior cerebral arteries are normal course and caliber. Posterior communicating arteries are both patent. Intracranial portion of the internal carotid arteries are normal course and caliber. No significant atherosclerosis, stenosis or aneurysm identified. Middle and anterior cerebral arteries are both patent with no significant disease. Anterior communicating artery is also normal. Cavum septum pellucidum et vergae noted. MR/MR angio head wo con [id number] IMPRESSION: Normal MRA [place] of [place].
== END 2024-10-05 11:28 | disposition home or self-care (01) ==
LOC: RAD 11:28
PROVIDERS: PCP Nurse Practitioner; Visit Provider Specialist
DX: R51.9 Headache, unspecified (principal); Q28.2 Arteriovenous malformation of cerebral vessels; R56.9 Unspecified convulsions
CPT/HCPCS: 70544

== ENCOUNTER → 2024-10-29 10:17 | Outpatient (BNVA) | payer OTHER, SELFPAY | PROVIDERS: PCP Nurse Practitioner; Visit Provider Specialist | DX: G40.909 Epilepsy, unspecified, not intractable, without status epilepticus (principal); R00.2 Palpitations | CPT/HCPCS: 36415; 84439; 84443; 84480; 99214 ==

== ENCOUNTER 2024-10-30 12:53 | Outpatient (CLI) | payer OTHER, SELFPAY | END 2024-10-30 12:54 | disposition home or self-care (01) | LOC: LAB 12:53 | PROVIDERS: PCP Nurse Practitioner; Visit Provider Specialist | DX: R56.9 Unspecified convulsions (principal) | CPT/HCPCS: 82384; 83497; 83835 ==